=== PATIENT | male | born 1955 | race Caucasian/White ===

== ENCOUNTER 2024-12-04 08:12 | Emergency (ER) | payer MEDICARE, MEDICAID, SELFPAY ==
[2024-12-04 09:09] VITALS: BP 129/83; PULSE 96; RESP 18; TEMP 36.8; O2SAT 96; BMI 22.6
--- NOTE | 2024-12-04 09:18 | PD.EDRME ---
Rapid Medical Screening Exam [facility] Arrival date/time: 12/04/24 08:12 Chief Complaint: General Adult/Misc Complain Vital signs: Vital Signs Temperature 98.2 F 12/04/24 09:09 Pulse Rate 96 12/04/24 09:09 Respiratory Rate 18 12/04/24 09:09 Blood Pressure 129/83 12/04/24 09:09 Pulse Oximetry (%) 96 12/04/24 09:09 Oxygen Delivery Method Room Air 12/04/24 09:09 RME Narrative: 69-year-old patient brought to emergency department by caregiver with complaint of G-tube since yesterday. Patient has been unable to get his medication or feeding since the G-tube was dislodged.
[2024-12-04 13:18] VITALS: BP 141/97; PULSE 102; RESP 18; TEMP 37.1; O2SAT 96
--- NOTE | 2024-12-04 13:35 | PD.EDADULT ---
ED General RME/HPI General Chief complaint: General Adult/Misc Complain Stated complaint: G-TUBE PLUGGED UP X LAST NIGHT Arrival date/time: 12/04/24 08:12 RME / HPI RME / HPI narrative: 69-year-old patient brought to emergency department by caregiver with complaint of G-tube since yesterday. Patient has been unable to get his medication or feeding since the G-tube was dislodged. DR. TILLEY MAIN ED EVALUATION: 69 year old male with past medical history significant for developmental delay, seizure disorder, a history of PEG tube placement for 2 years, colonic adenomatous polyps, BPH, blind, deaf, and bedridden presents to the Emergency Department from [facility] with complaint of G-tube malfunction per human service worker since yesterday. System Integration Engineer states the G-tube does not go in and has not been able to feed the patient or give any medications. System Integration Engineer denies any of the following: nausea, vomiting, diarrhea, or any other symptoms at this time. Related Data Home Medications ?Medication ?Instructions ?Recorded ?Confirmed loratadine 10 mg tablet 10 mg feeding tube QDAY 10/25/22 10/07/24 lorazepam 2 mg tablet 2 mg feeding tube HS 10/25/22 10/07/24 naproxen 500 mg tablet 500 mg feeding tube BID 10/25/22 10/07/24 chlorthalidone 25 mg tablet 25 mg feeding tube QAM 06/16/23 10/07/24 calcium carbonate-vitamin D3 600 1 tab BID 10/07/24 10/07/24 mg calcium-200 unit chewable tablet levetiracetam 500 mg tablet 500 mg BID 10/07/24 10/07/24 melatonin 10 mg tablet 10 mg feeding tube HS 10/07/24 10/07/24 polyethylene glycol 3350 17 17 g feeding tube DAILY 10/07/24 10/07/24 gram/dose oral powder (ClearLax) quetiapine 100 mg tablet 100 mg feeding tube ONCE PM 10/07/24 10/07/24 quetiapine 300 mg tablet 300 mg feeding tube HS 10/07/24 10/07/24 tamsulosin 0.4 mg capsule 0.4 mg QDAY 10/07/24 10/07/24 Previous Rx's ?Medication ?Instructions ?Recorded levofloxacin 750 mg tablet 750 mg PO QDAY #10 tabs 10/08/24 Allergies Allergy/AdvReac Type Severity Reaction Status Date / Time Penicillins Allergy Intermediate Hives Verified 12/04/24 08:13 Review of Systems Review of Systems ROS Unobtainable: unobtainable due to medical condition Past Medical History Past Medical History NEUROLOGIC: Positive Neurological Disorders and Seizures CARDIAC: Negative Cardiac Disorders or Congestive Heart Failure RESPIRATORY: Negative Chronic Obstructive Pulmonary Disease (COPD) or Asthma GASTROINTESTINAL: Positive Gastrointestinal Disorders and Gastroesophageal Reflux Disease; Negative Hepatitis GENITOURINARY: Negative Genitourinary Disorders or Renal Disease MUSCULOSKELETAL: Negative Musculoskeletal Disorders ENT: Positive Blind and Deafness ENDOCRINE: Negative Endocrine Disorders, Diabetes Mellitus Type 1 or Diabetes Mellitus Type 2 HEMATOLOGIC: Negative Blood Disorders or Sickle Cell Disease PSYCHO/SOCIAL: Positive Anxiety OTHER HISTORY: Positive Developmental Delay; Negative Falls, Blood Transfusions, Blood Transfusion Reaction, Anesthesia Reactions, Organ Transplant, Chemotherapy, Radiation Therapy, Hyperbaric Therapy, MRSA, VRSA, Vancomycin-Resistant Enterococci, Human Immunodeficiency Virus (HIV), Measles, Mumps, Rubella ([place] Measles), Pertussis or Clostridium Difficile Surgical History SURGICAL: Negative Organ Transplant Social History SMOKING STATUS: Unknown if ever smoked SECOND HAND EXPOSURE: No SUBSTANCE USE: does not use ALCOHOL: Never ED Exam Narrative Physical exam: GENERAL APPEARANCE: Well hydrated, well nourished, seems in no acute distress. Nonverbal, blind, deaf. VITALS: All vitals were reviewed and the pulse ox is 96% on room air which is normal according to my interpretation. HEENT: Normocephalic, atramatic, EOMI, EACs are patent. There is no bulge or retraction. Throat without erythema or exudate. Moist oromucosa. No jaundice NECK: Supple, no JVD or bruits. CARDIOVASCULAR: Heart regular without S3-S4 or murmur. No rubs or gallops. LUNGS/CHEST: Clear to auscultation bilaterally. No rales, rhonchi, or wheezing. Normal inspection. ABDOMEN: Left upper quadrant GI tube not working noted. Otherwise soft, nontender. No pulsatile masses. No rebound, rigidity, or guarding. No incarcerated hernia. EXTREMITIES: No edema, clubbing, or cyanosis. Intact CSM. Normal inspection and palpation. SKIN: Warm and dry without rashes. Normal inspection. MUSCULOSKELETAL: No gross deformity, NEURO: At baseline. PSYCHIATRIC: At baseline Course Quality Measures none Orders Category Date Time Status Miscellaneous Nursing Order NOW Care 12/04/24 13:42 Active Vital Signs Vital signs: Vital Signs Temperature 98.2 F 12/04/24 09:09 Pulse Rate 96 12/04/24 09:09 Respiratory Rate 18 12/04/24 09:09 Blood Pressure 129/83 12/04/24 09:09 Pulse Oximetry (%) 96 12/04/24 09:09 Oxygen Delivery Method Room Air 12/04/24 09:09 MDM Patient data External records reviewed:: [facility] previous records (Reviewed last admission discharge dated 10/08/24, patient admitted for the following: Community acquired pneumonia of left lower lobe of lung.) Clinical information provided by:: human service worker Social determinants that could affect healthcare access:: none Patient has the following chronic illnesses:: developmental delay, seizure disorder, a history of PEG tube placement for 2 years, colonic adenomatous polyps, BPH, blind, deaf, and bedridden How is presenting disease/condition affected by chronic disease/condition?: exacerbated by Evaluation data The following diagnostics were reviewed and interpreted by me:: other (specify) (none) Lab and/or radiology exams considered but not ordered:: none Interpretation Summary: n/a Medications Medications considered but not ordered:: none Medication administrations:: see above if any Consultations Consultation(s) initiated? (list below): No Diagnosis Differential Diagnosis ED Complaint MDM: G-tube dislodgment. G-tube obstruction. G-tube fracture Most likely diagnosis given after review of the tests above:: G-tube obstruction. Insertion of new G-tube and removal of the old 1 Admission Indicated Admission indicated?: not indicated Explain why admission is indicated or not indicated:: Patient has no emergent abnormalities on his studies and can be managed on an outpatient basis. Admission Request Was there a request for admission?: No Disposition Plan Disposition Plan: Discharge Discharge Attestation Discharge Attestation: The patient and all family members were given an opportunity to ask questions and understood the discharge instructions. Discharge instructions specifically effects, indications for sooner follow up or return to the emergency department, and the expected course of current diagnosis. Patient condition: Stable Medical Decision Making MDM Narrative MDM Narrative: IEstela, am scribing for and in the presence of Dr. Tilley. In the emergency department we were able to locate a brand-new G-tube. The old G-tube was carefully removed after the balloon was deflated. No complication. The brand-new G-tube was inserted by me through the established stoma. It went in easily without any complication. We inflated the balloon with 10 mL of water. We tested the G-tube with auscultation. Stomach air bubble was heard. And we were able to extract some stomach fluid. Therefore the G-tube is in position and is working well. The patient is being discharged to the care provider back to the [facility]. Differential Diagnosis Differential Diagnosis: G-tube dislodgment. G-tube obstruction. G-tube fracture Discharge Plan Plan Patient Disposition: HOME (Self Care) Disposition Comment: Stable for DC home Prescriptions/Referrals Prescriptions/Med Rec: No Action lorazepam 2 mg tablet 2 mg feeding tube HS loratadine 10 mg tablet 10 mg feeding tube QDAY naproxen 500 mg tablet 500 mg feeding tube BID Rx Instructions: with food chlorthalidone 25 mg tablet 25 mg feeding tube QAM tamsulosin 0.4 mg Capsule 0.4 mg QDAY Rx Instructions: via gtube polyethylene glycol 3350 [ClearLax] 17 gram/dose powder 17 g feeding tube DAILY Rx Instructions: with 8 ounces of water or juice calcium carbonate-vitamin D3 600 mg calcium- 200 unit Tablet,Chewable 1 tab BID Rx Instructions: via gtube quetiapine 100 mg tablet 100 mg feeding tube ONCE PM Rx Instructions: in the afternoon levetiracetam 500 mg tablet 500 mg BID Rx Instructions: via gtube quetiapine 300 mg tablet 300 mg feeding tube HS melatonin 10 mg Tablet 10 mg feeding tube HS levofloxacin 750 mg tablet 750 mg PO QDAY Qty: 10 0RF Referrals: Ko Olea MD [Primary Care Provider] - In 1 week Problem List Clinical Impression: Gastrostomy tube obstruction Patient/Caregiver Discharge Instructions Education Materials: ED Feeding Tube Replacement Additional Instructions: Follow-up with his medical doctor as needed. Return emergency department if any problem with the G-tube otherwise Print Language: Citizen Of [place] Stand Alone Forms: Milana Award Info., Patient Portal Info Letter
[2024-12-04 15:36] VITALS: BP 135/60; PULSE 80; RESP 16; TEMP 36.6; O2SAT 95
== END 2024-12-04 15:39 | disposition home or self-care (01) ==
PROVIDERS: Emergency Provider Emergency Medicine; PCP Family Medicine
DX: K94.23 Gastrostomy malfunction (principal); N40.0 Benign prostatic hyperplasia without lower urinary tract symptoms
CPT/HCPCS: 43762; 99283

== ENCOUNTER → 2024-12-23 | Outpatient (CLI) | payer MEDICARE, MEDICAID, SELFPAY ==
--- NOTE | 2024-12-23 16:22 | XR_ITS ---
Examination: AP chest single view Technique one AP upright portable chest single view Exam date and time: December 23, 2024 1644 hrs. Comparison October 07, 2024 Indications: Coughing bronchitis beginning 2 months ago. Findings: Accentuation bronchovascular markings Pneumonia posterior basal segment right lower lobe noted on the lateral view Normal heart size Impression: Mild pneumonia posterior basal segment right lower lobe
== END | disposition home or self-care (01) ==
LOC: CDIM 16:13
PROVIDERS: Referring Provider Family Medicine; Visit Provider Family Medicine
DX: J18.1 Lobar pneumonia, unspecified organism (principal)
CPT/HCPCS: 71046

== ENCOUNTER 2025-01-02 12:24 | Emergency (ER) | payer MEDICARE, MEDICAID, SELFPAY ==
[2025-01-02 12:27] VITALS: BMI 21.8
[2025-01-02 12:39] VITALS: BP 122/62; PULSE 89; RESP 16; TEMP 36.6; O2SAT 95
--- NOTE | 2025-01-02 12:51 | XR_ITS ---
Examination: CT brain head without contrast. 2-D sagittal coronal reconstructions Date and time of exam:January 02, 2025 1340 hrs. Indications: Patient fell today with injury to the head, head pain CTDI: vol (mGy):53.1 DLP: (mGycm):1000 Technique: Multiple CT axial sections of the brain have been obtained, 5 mm slice thickness. Contrast has not been administered. 2-D sagittal, coronal reconstructions have been obtained Low dose protocols were performed. One or more of the following dose reduction techniques were used; automated exposure control, adjustment of the mA and/or KV according to patient size, use of iterative reconstruction technique. Findings: No significant ventricular enlargement. Atrophic optic globes Intra-axial or extra-axial hemorrhage density is not seen. No mass effect or midline shift Basal cisterns are not remarkable. Fourth ventricle is midline. Cranial vault intact. Impression: Negative for acute hemorrhage, mass effect or midline shift
--- NOTE | 2025-01-02 15:00 | PD.EDFALL ---
ED Fall Injury RME/HPI General Chief Complaint: Wound/Laceration Stated Complaint: FALL, LACERATION TO POSTERIOR HEAD Time Seen by Provider: 01/02/25 12:52 Arrival date/time: 01/02/25 12:24 69-year-old male with chronic significant medical problems nonverbal presents with caregiver who witnessed a slip and fall reports that the patient hit the back of his head on a chair reports no loss of consciousness no vomiting Limitations: no limitations Related Data Home Medications ?Medication ?Instructions ?Recorded ?Confirmed loratadine 10 mg tablet 10 mg feeding tube QDAY 10/25/22 10/07/24 lorazepam 2 mg tablet 2 mg feeding tube HS 10/25/22 10/07/24 naproxen 500 mg tablet 500 mg feeding tube BID 10/25/22 10/07/24 chlorthalidone 25 mg tablet 25 mg feeding tube QAM 06/16/23 10/07/24 calcium carbonate-vitamin D3 600 1 tab BID 10/07/24 10/07/24 mg calcium-200 unit chewable tablet levetiracetam 500 mg tablet 500 mg BID 10/07/24 10/07/24 melatonin 10 mg tablet 10 mg feeding tube HS 10/07/24 10/07/24 polyethylene glycol 3350 17 17 g feeding tube DAILY 10/07/24 10/07/24 gram/dose oral powder (ClearLax) quetiapine 100 mg tablet 100 mg feeding tube ONCE PM 10/07/24 10/07/24 quetiapine 300 mg tablet 300 mg feeding tube HS 10/07/24 10/07/24 tamsulosin 0.4 mg capsule 0.4 mg QDAY 10/07/24 10/07/24 Previous Rx's ?Medication ?Instructions ?Recorded levofloxacin 750 mg tablet 750 mg PO QDAY #10 tabs 10/08/24 Allergies Allergy/AdvReac Type Severity Reaction Status Date / Time Penicillins Allergy Intermediate Hives Verified 01/02/25 12:25 Review of Systems Review of Systems Systems Reviewed: All systems reviewed, normal except as documented Constitutional Constitutional: Reports system reviewed and no additional complaints, except as documented, Denies fever(s) and Denies headache(s) Eyes Eyes: Reports system reviewed and no additional complaints, except as documented and Denies blurry vision ENT Ears, Nose, Mouth, and Throat: Reports system reviewed and no additional complaints, except as documented, Denies headache(s), Denies nasal congestion and Denies nasal discharge Cardiovascular Cardiovascular: Reports system reviewed and no additional complaints, except as documented, Denies chest pain and Denies dyspnea Respiratory Respiratory: Reports system reviewed and no additional complaints, except as documented, Denies chest congestion, Denies cough and Denies dyspnea Gastrointestinal Gastrointestinal: Reports system reviewed and no additional complaints, except as documented and Denies abdominal pain Integumentary/Breasts Skin/Breast: Reports system reviewed and no additional complaints, except as documented, Denies rash and Reports wounds (Laceration scalp) Neurologic Neurologic: Reports system reviewed and no additional complaints, except as documented, Reports as per HPI and Denies headache(s) Past Medical History Past Medical History NEUROLOGIC: Positive Neurological Disorders and Seizures CARDIAC: Negative Cardiac Disorders or Congestive Heart Failure RESPIRATORY: Negative Chronic Obstructive Pulmonary Disease (COPD) or Asthma GASTROINTESTINAL: Positive Gastrointestinal Disorders and Gastroesophageal Reflux Disease; Negative Hepatitis GENITOURINARY: Negative Genitourinary Disorders or Renal Disease MUSCULOSKELETAL: Negative Musculoskeletal Disorders ENT: Positive Blind and Deafness ENDOCRINE: Negative Endocrine Disorders, Diabetes Mellitus Type 1 or Diabetes Mellitus Type 2 HEMATOLOGIC: Negative Blood Disorders or Sickle Cell Disease PSYCHO/SOCIAL: Positive Anxiety OTHER HISTORY: Positive Developmental Delay; Negative Falls, Blood Transfusions, Blood Transfusion Reaction, Anesthesia Reactions, Organ Transplant, Chemotherapy, Radiation Therapy, Hyperbaric Therapy, MRSA, VRSA, Vancomycin-Resistant Enterococci, Human Immunodeficiency Virus (HIV), Measles, Mumps, Rubella ([place]ymraes Measles), Pertussis or Clostridium Difficile Surgical History SURGICAL: Negative Organ Transplant Social History SMOKING STATUS: Unknown if ever smoked SECOND HAND EXPOSURE: No SUBSTANCE USE: does not use ED Exam General Limitations: Present no limitations General appearance: Present alert and in no apparent distress Expanded Head Exam Head image:  1. 3 cm laceration Eye Eye exam: Present normal appearance, PERRL and EOMI ENT ENT exam: Present normal exam, normal oropharynx and mucous membranes moist Neck Neck exam: Present normal inspection, full ROM and trachea midline; Absent tenderness Chest Chest inspection: Present normal inspection and symmetric chest wall rise; Absent tenderness Respiratory Respiratory exam: Present normal lung sounds bilaterally; Absent respiratory distress Cardiovascular Cardiovascular exam: Present regular rate, normal rhythm and normal heart sounds Abdominal Exam Abdominal exam: Present soft and normal bowel sounds Extremities Exam Extremities exam: Present normal inspection and full ROM Back Exam Back exam: Present normal inspection and full ROM Neurological Exam Neurological exam: Present alert, oriented X3 and CN II-XII intact Psychiatric Psychiatric exam: Present normal affect and normal mood Skin Skin exam: Present warm, dry and other (Scalp laceration) Course Quality Measures none Orders Category Date Time Status Stapler to Beside ONCE Care 01/02/25 12:51 Completed Wound Care NOW Care 01/02/25 12:[address] head/brain wo con Stat Exams 01/02/25 12:51 Completed Lidocaine 1% 20 ml [Xylocaine 1% 20 ML] Med 01/02/25 12:51 Discontinued 20 ml INFL X1 ONE Tet,Diphth,Pertuss(Acell)-Tdap [Boostrix Vacc] Med 01/02/25 16:25 Discontinued 0.5 ml IMI .ONCE ONE Vital Signs Vital signs: Vital Signs Temperature 97.8 F 01/02/25 12:39 Pulse Rate 89 01/02/25 12:39 Respiratory Rate 16 01/02/25 12:39 Blood Pressure 122/62 01/02/25 12:39 Pulse Oximetry (%) 95 01/02/25 12:39 Oxygen Delivery Method Room Air 01/02/25 12:39 O2 saturation 95% room air within the limits Procedures -ED Laceration Laceration 1: Site: scalp Size (cm): 3 Description: linear Depth: simple, single layer Local Anesthetic: lidocaine 1% Amount of anesthesia used (mL): 0 Pre-repair: irrigated extensively Skin layer closed with: nylon Size (cm): 4-0 Number of sutures: 4 Technique: simple, interrupted Fall MDM Narrative MDM Narrative:: 69-year-old male with chronic significant medical problems nonverbal presents with caregiver who witnessed a slip and fall reports that the patient hit the back of his head on a chair reports no loss of consciousness no vomiting On exam patient is laceration of the back of his head Wound irrigated laceration repaired with 4 sutures applied tetanus updated No active bleeding time of discharge CT scan of the head obtained no acute emergent findings noted Patient discharged home in no distress to follow-up with primary care doctor in the next 24 to 48 hours and for any worsening symptoms to return to the ER immediately Patient data External records reviewed:: [facility] previous records Clinical information provided by:: diving coach Social determinants that could affect healthcare access:: none Patient has the following chronic illnesses:: See history How is presenting disease/condition affected by chronic disease/condition?: exacerbated by Evaluation data The following diagnostics were reviewed and interpreted by me:: radiology exam(s) Lab and/or radiology exams considered but not ordered:: Radiology obtain Interpretation Summary: Reviewed by me Medications / Prescriptions Medications or Prescriptions considered but not ordered:: Given Medication administrations:: Medication Administration History Discontinued Medications Diphtheria/Tetanus/Acell Pertussis (Diphth,Pertuss(Acell),Tet Vac 0.5 Ml Vial) 0.5 ml IMi .ONCE ONE Stop: 01/02/25 16:26 Last Admin: 01/02/25 16:28 Dose: 0.5 ml Documented By: JUAN PABLO Lidocaine HCl (Lidocaine Hcl 1% 20 Ml Vial) 20 ml INFL X1 ONE Stop: 01/02/25 12:52 Last Admin: 01/02/25 16:11 Dose: 20 ml Documented By: JUAN PABLO Given Consultations Consultation(s) initiated? (list below): No Diagnosis Fall Differential Diagnosis: syncope and other (Laceration, abrasion) Most likely diagnosis given after review of the tests above:: Laceration Admission Indicated Admission indicated?: not indicated Admission Request Was there a request for admission?: No Disposition Plan Disposition Plan: Discharge Discharge Attestation Discharge Attestation: The patient and all family members were given an opportunity to ask questions and understood the discharge instructions. Discharge instructions specifically effects, indications for sooner follow up or return to the emergency department, and the expected course of current diagnosis. Patient condition: Stable Discharge Plan Plan Patient Disposition: HOME (Self Care) Disposition Comment: Stable Prescriptions/Referrals Prescriptions/Med Rec: No Action lorazepam 2 mg tablet 2 mg feeding tube HS loratadine 10 mg tablet 10 mg feeding tube QDAY naproxen 500 mg tablet 500 mg feeding tube BID Rx Instructions: with food chlorthalidone 25 mg tablet 25 mg feeding tube QAM tamsulosin 0.4 mg Capsule 0.4 mg QDAY Rx Instructions: via gtube polyethylene glycol 3350 [ClearLax] 17 gram/dose powder 17 g feeding tube DAILY Rx Instructions: with 8 ounces of water or juice calcium carbonate-vitamin D3 600 mg calcium- 200 unit Tablet,Chewable 1 tab BID Rx Instructions: via gtube quetiapine 100 mg tablet 100 mg feeding tube ONCE PM Rx Instructions: in the afternoon levetiracetam 500 mg tablet 500 mg BID Rx Instructions: via gtube quetiapine 300 mg tablet 300 mg feeding tube HS melatonin 10 mg Tablet 10 mg feeding tube HS levofloxacin 750 mg tablet 750 mg PO QDAY Qty: 10 0RF Referrals: No Primary/Family,Physician [Primary Care Provider] - In 1 week Problem List Clinical Impression: Laceration of scalp Patient/Caregiver Discharge Instructions Education Materials: First Aid: Head Injuries Additional Instructions: Please follow up with your primary care doctor in the next 24-48hrs for any worsening symptoms return here immediately Please have suture removed in 10 to 14 days Print Language: [place] Stand Alone Forms: Milana Award Info., Patient Portal Info Letter Vaccines Vaccines Given During Stay: TDaP PA/ROAD MAKER Supervising Physician PA/ROAD MAKER Supervising Physician: Dr Olivier
[2025-01-02] MEDS: LIDOCAINE HCL 1% 20 ML VIAL INFL (16:11)
[2025-01-02] MEDS: DIPHTH,PERTUSS(ACELL),TET VAC 0.5 ML VIAL IMi (16:28)
== END 2025-01-02 16:35 | disposition home or self-care (01) ==
PROVIDERS: Emergency Provider Emergency Medicine
DX: S01.01XA Laceration without foreign body of scalp, initial encounter (principal); W01.0XXA Fall on same level from slipping, tripping and stumbling without subsequent striking against object, initial encounter; Z23 Encounter for immunization
CPT/HCPCS: 12002; 70450; 90471; 90715; 99283; J3490

== ENCOUNTER 2025-02-03 08:30 | Emergency (ER) | payer MEDICARE, MEDICAID, SELFPAY ==
[2025-02-03 09:01] VITALS: BP 128/79; PULSE 94; RESP 15; TEMP 36.4; O2SAT 95
[2025-02-03 09:04] VITALS: BP 128/79; PULSE 91; RESP 18; TEMP 36.7; O2SAT 95; O2SAT 96; BMI 22.4
--- NOTE | 2025-02-03 09:04 | EKG_ITS ---
[facility] Test Date: 2025-02-03 Pat Name: LUCY ELLSWORTH Department: Room: - Gender: Male Field Marketing Lead: : 1955 Requested By: Arian Moy Order Number: [id number] Reading MD: Arian Moy Measurements Intervals [place] Rate: 87 P: 62 [place]: 164 QRS: -48 QRSD: 101 T: 61 QT: 368 QTc: 443 Interpretive Statements SINUS RHYTHM INDETERMINATE AXIS LOW QRS VOLTAGE IN PRECORDIAL LEADS [QRS DEFLECTION < 1.0 mV IN CHEST LEADS] LEFT ANTERIOR FASCICULAR BLOCK [QRS AXIS <= -45, QR IN I, RS IN II] POSSIBLE ANTERIOR MYOCARDIAL INFARCTION , PROBABLY OLD [30 ms Q WAVE IN V3/V4, OR R < 0.2 mV IN V4] Compared to ECG 09/01/2023 09:06:01 Indeterminate axis now present Left anterior fascicular block now present Myocardial infarct finding still present /store/S0/[id number]
--- NOTE | 2025-02-03 09:05 | PD.EDADULT ---
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 Patient is unable provide any history so all the history is communicated by EMS as derived from the nursing facility. No further information can be provided. Related Data Home Medications ?Medication ?Instructions ?Recorded ?Confirmed loratadine 10 mg tablet 10 mg feeding tube QDAY 10/25/22 10/07/24 lorazepam 2 mg tablet 2 mg feeding tube HS 10/25/22 10/07/24 naproxen 500 mg tablet 500 mg feeding tube BID 10/25/22 10/07/24 chlorthalidone 25 mg tablet 25 mg feeding tube QAM 06/16/23 10/07/24 calcium carbonate-vitamin D3 600 1 tab BID 10/07/24 10/07/24 mg calcium-200 unit chewable tablet levetiracetam 500 mg tablet 500 mg BID 10/07/24 10/07/24 melatonin 10 mg tablet 10 mg feeding tube HS 10/07/24 10/07/24 polyethylene glycol 3350 17 17 g feeding tube DAILY 10/07/24 10/07/24 gram/dose oral powder (ClearLax) quetiapine 100 mg tablet 100 mg feeding tube ONCE PM 10/07/24 10/07/24 quetiapine 300 mg tablet 300 mg feeding tube HS 10/07/24 10/07/24 tamsulosin 0.4 mg capsule 0.4 mg QDAY 10/07/24 10/07/24 Previous Rx's ?Medication ?Instructions ?Recorded levofloxacin 750 mg tablet 750 mg PO QDAY #10 tabs 10/08/24 Allergies Allergy/AdvReac Type Severity Reaction Status Date / Time Penicillins Allergy Intermediate Hives Verified 01/02/25 12:25 Review of Systems Review of Systems ROS Unobtainable: unobtainable due to mental status Past Medical History Past Medical History NEUROLOGIC: Positive Neurological Disorders and Seizures GASTROINTESTINAL: Positive Gastrointestinal Disorders and Gastroesophageal Reflux Disease ENT: Positive Blind and Deafness PSYCHO/SOCIAL: Positive Anxiety OTHER HISTORY: Positive Developmental Delay Social History SMOKING STATUS: Never smoker SECOND HAND EXPOSURE: No SUBSTANCE USE: does not use ED Exam Narrative Physical exam: Physical Exam: General: The vital signs were reviewed. Patient has sunken eyes as usual he appears little bit cachectic as usual. O2 sats on room air 97% with a good waveform but the pulse rate is 93. Rectal temp was done since the oral temp was normal and the rectal temperature was also normal. Patient is breathing comfortably appears to be sedate and no obvious pain with examining or palpating his body. Head & Scalp: Besides cachectic and sunken eyes normocephalic, atraumatic. Face: Appears normal and is without lesions, deformity. Ears: Left external pinna appears normal. Right external pinna appears normal. Eyes: The sclera is anicteric. No obvious photophobia. The Left and Right Orbit/Lid/Conjunctiva appears normal without swelling, discoloration or injection. Nose: The nose is without deformity, discharge or tenderness; Throat: Appears dry . The mucous membranes are pink and moist without exudates, redness or mass seen. The tongue appears normal. Neck: The neck is decreased mobility. No adenopathy. Chest: The chest wall is normal in size and symmetry and has no chest wall tenderness or crepitus. The patient displays normal ventilator effort without retractions, accessory muscle use and has adequate air movement bilaterally with no wheezes and no rales. Cardiovascular: Regular rate sinus rhythm of 93 on the monitor. And rhythm; No murmurs, rubs, or gallops; Gastrointestinal: The abdomen appears normal. No obvious hernias or mass. The abdomen is soft and benign, non-distended, with no pain, no guarding and no rebound tenderness. Bowel sounds are present and normal sounding. No CVA tenderness. Genitourinary: Back/Spine: Rolled him he is got a couple small red spots and a little pressure area on his butt but no breakdown. Extremities/Musculoskeletal/lymphatic: The bilateral upper and lower extremities are warm. There are scattered excoriations on the lower extremities. There is no evidence of arterial insufficiency. There is no evidence of venous insufficiency/edema. The patient has atrophy of his extremities and does not follow commands and unable to assess his movement or motor strength. Skin: The skin is warm, dry and intact. No rashes. No petechia. No purpura. No abnormal bruising. The color is appropriate with no cyanosis. Mental status/Psychiatric: Mental status is usual baseline deaf blind nonverbal Neurological: The patient is minimally arousable minimal response to touch this morning. The gait, station and balance are unable to be tested due to his baseline developmental delays. Course Quality Measures none Orders Category Date Time Status Bedside Blood Glucose NOW Care 02/03/25 09:04 Active EKG (ED ONLY) *Do not use* NOW Care 02/03/25 09:[address] head/brain wo con Stat Exams 02/03/25 09:04 Completed EKG (ED Only) Stat Exams 02/03/25 09:04 Draft XR chest 1V portable Stat Exams 02/03/25 09:04 Completed Alcohol, Blood Medical Stat Lab 02/03/25 09:47 Completed Ammonia Stat Lab 02/03/25 09:47 Completed B-Type Natriuretic Peptide Stat Lab 02/03/25 09:47 Completed Blood Culture (Lab) Stat Lab 02/03/25 09:58 Received CBC Stat Lab 02/03/25 09:47 Completed Comprehensive Metabolic Panel Stat Lab 02/03/25 09:47 Completed Drug Screen,Urine Stat Lab 02/03/25 09:09 Completed Lactate (Lactic Acid) Stat Lab 02/03/25 09:47 Completed Procalcitonin Stat Lab 02/03/25 09:47 Completed Prothrombin Time with INR Stat Lab 02/03/25 09:47 Completed Troponin I Stat Lab 02/03/25 09:47 Completed Type and Screen Stat Lab 02/03/25 09:47 Completed Urinalysis Stat Lab 02/03/25 09:09 Completed Urinalysis, C/S if Indicated Stat Lab 02/03/25 09:09 Completed Venous Blood Gas Stat Lab 02/03/25 09:47 Completed Sodium Chloride 0.9% 1000 ml [Ns] 1,000 ml Med 02/03/25 15:14 Discontinued IV 999 mls/hr Sodium Chloride 0.9% 1000 ml [Ns] 2,000 ml Med 02/03/25 09:04 Active IV 150 mls/hr cefTRIAXone [Rocephin] 1,000 mg Med 02/03/25 15:14 Discontinued SODIUM CHLORIDE 0.9% (Popper) [Ns 0.9% (P)] 50 ml IV X1 Vital Signs Vital signs: Vital Signs Temperature 97.6 F 02/03/25 09:01 Pulse Rate 94 02/03/25 09:01 Respiratory Rate 15 02/03/25 09:01 Blood Pressure 128/79 02/03/25 09:01 Pulse Oximetry (%) 95 02/03/25 09:01 Oxygen Delivery Method Room Air 02/03/25 09:01 Pulse ox is 95% on room air which is adequate. [facility] Patient data External records reviewed:: [facility] previous records (I reviewed ED visit on 01/02/2025), EMS form and Long-Term records (I reviewed pmhx and medication list from [facility]) Clinical information provided by:: EMS Social determinants that could affect healthcare access:: housing ([facility] resident) Patient has the following chronic illnesses:: developmental delay, seizure disorder, a history of PEG tube placement for 2 years, colonic adenomatous polyps, BPH, blind, deaf, and bedridden How is presenting disease/condition affected by chronic disease/condition?: exacerbated by Evaluation data The following diagnostics were reviewed and interpreted by me:: lab results, radiology exam(s) and EKG tracing(s) Lab and/or radiology exams considered but not ordered:: none Interpretation Summary: Ordering Physician: Arian Moy MD Date of Service: 02/03/25 Procedure(s): XR chest 1V portable Accession Number(s): [id number] cc: Arian Moy MD; Uvaldo Car MD; Ko Olea MD~ Examination: AP chest single view TECHNIQUE: AP portable semiupright chest single view Exam date and time: February 03, 2025 at 0948 hours INDICATIONS: Onset chest pain today FINDINGS: Mild opacity left base Normal heart size Reduced inspiratory effort IMPRESSION: Mild pneumonia left base Dictated By: Uvaldo Car MD Signed By: <Electronically signed by Uvaldo Car MD in [place]> 02/03/25 1111 Ordering Physician: Arian Moy MD Date of Service: 02/03/25 Procedure(s): CT head/brain wo con Accession Number(s): [id number] cc: Arian Moy MD; Uvaldo Car MD; Ko Olea MD~ Examination: CT brain head without contrast. 2-D sagittal coronal reconstructions Date and time of exam:February 03, 2025 1113 hours INDICATIONS: Loss of consciousness episode today COMPARISON: January 02, 2025 CTDI: vol (mGy):46.2 DLP: (mGycm):989 Technique: Multiple CT axial sections of the brain have been obtained, 5 mm slice thickness. Contrast has not been administered. 2-D sagittal, coronal reconstructions have been obtained Low dose protocols were performed. One or more of the following dose reduction techniques were used; automated exposure control, adjustment of the mA and/or KV according to patient size, use of iterative reconstruction technique. Findings: Images are degraded by patient motion Mild ventricular enlargement No acute hemorrhage or mass effect Atrophic optic globes IMPRESSION: Limited study No gross hemorrhage or mass effect Dictated By: Uvaldo Car MD Signed By: <Electronically signed by Uvaldo Car MD in OV> 02/03/25 1137 Medications Medications considered but not ordered:: none Medication administrations:: Medication Administration History Sodium Chloride (Ns) 2,000 mls @ 150 mls/hr IV .[id number] ONE Stop: 02/03/25 22:23 Last Infusion: 02/03/25 15:30 Dose: 0 mls/hr Documented By: Admin: 02/03/25 09:58 Dose: 150 mls/hr Documented By: ROMEL Discontinued Medications Sodium Chloride (Ns) 1,000 mls @ 999 mls/hr IV .[id number] ONE Stop: 02/03/25 16:14 Last Admin: 02/03/25 15:49 Dose: 999 mls/hr Documented By: TM Ceftriaxone Sodium 1,000 mg/ (Sodium Chloride) 50 mls @ 100 mls/hr IV X1 ONE Stop: 02/03/25 15:43 Last Admin: 02/03/25 15:49 Dose: 100 mls/hr Documented By: TM see above Consultations Consultation(s) initiated? (list below): No Diagnosis Differential Diagnosis ED Complaint MDM: pneumonia, viral illness, dehydration, sepsis Most likely diagnosis given after review of the tests above:: Dehydration may be a left lower lobe pneumonia Admission Indicated Admission indicated?: not indicated Explain why admission is indicated or not indicated:: Patient is not hypoxic he can be hydrated through his G-tube and is BUN/creatinine indices are mildly elevated. custodial doctor through the discharge notes can monitor this and return the patient if getting worse. Admission Request Was there a request for admission?: No Disposition Plan Disposition Plan: Discharge Discharge Attestation Discharge Attestation: The patient and all family members were given an opportunity to ask questions and understood the discharge instructions. Discharge instructions specifically effects, indications for sooner follow up or return to the emergency department, and the expected course of current diagnosis. Patient condition: Stable Medical Decision Making MDM Narrative MDM Narrative: It is literally impossible to tell if he has an acute illness or not but he has a normal O2 sat on arrival he appears to be lethargic and not reacting much so we will do a mental workup for altered mental status. Medical workup reveals a CT of the head with no acute. Chest x-ray reveals a left lower lobe pneumonia. White count is 10.2 hemoglobin is 14.3 platelet count is 1 39,000. pH is 7.39 pCO2 of 60. Sodium is elevated 140 potassium 3.7 chloride 104 CO2 36 BUN is elevated 28 creatinine 1.1 consistent with prerenal azotemia and dehydration glucose 99 Alles mild is elevated at 299 lactic acid is 1.6 transaminases bilirubin within normal limits. Urinalysis came back negative for any infection urine urine drug screen was negative alcohol level was negative Twelve-lead EKG reveals sinus rhythm rate 87. There is a little motion artifact. There is no ST elevation [place] seen. It appears the patient's got some acute dehydration with increased osmolality increased sodium increased BUN/creatinine ratio. The left lower lobe pneumonia. His O2 sat appears good. Both given liter total of fluids given 1 dose of Rocephin here in the ER home on azithromycin and be followed by the [facility] doctor. Caregiver is present and states they can manage these things. Evidently patient has been on antibiotics recently for other things. Patient completed a liter bolus reevaluation of his O2 sat to be 9790%. His vital signs are good he got his gram of Rocephin. In the discharge instructions will and follow-up on his mild dehydration. Differential Diagnosis Differential Diagnosis: pneumonia, viral illness, dehydration, sepsis Lab Data 02/03/25 09:47 02/03/25 09:47 Labs: Lab Results 02/03/25 02/03/25 Range/Units 09:09 09:47 WBC 10.2 (3.8-10.6) Thou/mm3 RBC 4.75 (4.50-5.90) Miln/mm3 Hgb 14.3 (13.5-16.0) g/dL Hct 42.1 (41.0-53.0) % MCV 89 (80-100) fL MCH 30.1 (25.0-35.0) pg MCHC 34.0 (31.0-37.0) g/dl RDW Std Deviation 42.5 (35.1-43.9) fL Plt Count 139 L (140-440) Thou/mm3 Neut % (Auto) 71 (37-80) % Lymph % (Auto) 13 (10-50) % [place] % (Auto) 9 (0-12) % Eos % (Auto) 7 (0-10) % Baso % (Auto) 0 (0-2.5) % Neut # (Auto) 7.3 (1.8-7.7) Thou/mm3 Lymph # (Auto) 1.3 (1.0-4.8) Thou/mm3 [place] # (Auto) 0.9 H (0.0-0.8) Thou/mm3 Eos # (Auto) 0.7 H (0.0-0.5) Thou/mm3 Baso # (Auto) 0.0 (0.0-0.2) Thou/mm3 Immature Gran # (Auto) 0.02 H (0.00-0.00) Thou/mm3 Absolute Nucleated RBC 0.00 (0.00-0.00) Thou/mm3 Immature Gran % 0 (0-0) % Nucleated RBC % 0 (0) /100 WBC PT 11.6 (9.0-12.2) Seconds INR 1.1 (0.9-1.3) VBG pH 7.39 (7.33-7.66) VBG pCO2 60 H (36-56) mmHg VBG pO2 34 (15-58) mmHg VBG O2 Sat (Kassidy) 62 L (96-97) % VBG Base Excess 9 H (-3-3) Sodium 148 H (136-145) mMol/L Potassium 3.7 (3.4-5.1) mMol/L Chloride 104 (98-107) mMol/L Carbon Dioxide 36.0 H (20.0-31.0) mMol/L Anion Gap 8 (7-16) BUN 28 H (9-23) mg/dL Creatinine 1.1 (0.6-1.3) mg/dL Estim Creat Clear Calc 56.5 L (>60) mL/min eGFR > 60 (60 - ) See Note BUN/Creatinine Ratio 25 H (12-20) Ratio Glucose 99 (74-106) mg/dL Calculated Osmolality 299 H (275-295) Lactic Acid 1.6 (0.4-2.0) mMol/L Calcium 10.8 H (8.3-10.6) mg/dL Corrected Calcium 10.8 H (8.5-10.1) mg/dL Total Bilirubin 0.3 (0.3-1.2) mg/dL AST 27 (0-34) U/L ALT 24 (10-49) U/L Alkaline Phosphatase 119 H (46-116) U/L Ammonia < 10 L (11-32) uMol/L Troponin I < 0.020 (0.0-0.045) ng/mL B-Natriuretic Peptide < 20 (0-100) pg/mL Total Protein 7.3 (5.7-8.2) gm/dL Albumin 4.5 (3.4-4.8) gm/dL Globulin 2.8 (2.3-3.5) gm/dL Albumin/Globulin Ratio 1.6 (1.2-2.2) Procalcitonin 0.08 (0.0-0.49) ng/ml Ur Collection Type Clean Catch Urine Color Lt-Yellow (Lt Yel-Yel) Urine Clarity Hazy (Clear/Hazy) Urine pH 7.0 (5.0-7.0) Ur Specific [place] 1.012 (1.001-1.035) Urine Protein Negative (Neg - Trace) Urine Glucose (UA) Negative (Negative) Urine Ketones Negative (Negative) Urine Blood Negative (Negative) Urine Nitrite Negative (Negative) Urine Bilirubin Negative (Negative) Urine Urobilinogen (Auto) Negative (0.0-1.0) mg/dL Ur Leukocyte Esterase Negative (Negative) Urine RBC 6 H (0-3) /hpf Urine WBC 4 (0-5) /hpf Ur Squamous Epith Cells < 1 (0-5) /hpf Ur Transition Epith Cell 3 (0-5) /hpf Amorphous Crystals Present A (Absent) Urine Bacteria None (None) Ur Culture Indicated? Not Indicated Urine Opiates Screen Negative (Negative) Urine Fentanyl Screen Negative (Negative) Ur Barbiturates Screen Negative (Negative) U Amphetamin/Meth Scrn Negative (Negative) U Benzodiazepines Scrn Negative (Negative) U Cocaine Metab Screen Negative (Negative) U Marijuana (THC) Screen Negative (Negative) Ethyl Alcohol < 10.0 (0-10.0) mg/dL Blood Type A Positive Antibody Screen NEGATIVE Blood Bank Wristband ID Yes Discharge Plan Plan Patient Disposition: HOME (Self Care) Prescriptions/Referrals Prescriptions/Med Rec: No Action lorazepam 2 mg tablet 2 mg feeding tube HS loratadine 10 mg tablet 10 mg feeding tube QDAY naproxen 500 mg tablet 500 mg feeding tube BID Rx Instructions: with food chlorthalidone 25 mg tablet 25 mg feeding tube QAM tamsulosin 0.4 mg Capsule 0.4 mg QDAY Rx Instructions: via gtube polyethylene glycol 3350 [ClearLax] 17 gram/dose powder 17 g feeding tube DAILY Rx Instructions: with 8 ounces of water or juice calcium carbonate-vitamin D3 600 mg calcium- 200 unit Tablet,Chewable 1 tab BID Rx Instructions: via gtube quetiapine 100 mg tablet 100 mg feeding tube ONCE PM Rx Instructions: in the afternoon levetiracetam 500 mg tablet 500 mg BID Rx Instructions: via gtube quetiapine 300 mg tablet 300 mg feeding tube HS melatonin 10 mg Tablet 10 mg feeding tube HS levofloxacin 750 mg tablet 750 mg PO QDAY Qty: 10 0RF Referrals: Ko Olea MD [Primary Care Provider] - In 1 week Problem List Clinical Impression: Acute dehydration, Developmental delay, moderate, Pneumonia Patient/Caregiver Discharge Instructions Education Materials: Dehydration Additional Instructions: Today the patient has increased osmolality increased prerenal azotemia probably secondary to dehydration. I would increase her liberalize the water intake through the G-tube. His O2 sats are 97%. The chest x-ray suggest a small infiltrate in the left lower base. He can take antibiotics with the G-tube azithromycin or equivalent. Please recheck his electrolytes in 2 days make sure that BUN/creatinine is improving. Or return if he is getting worse in any way. Print Language: [place] Stand Alone Forms: Milana Award Info., Patient Portal Info Letter
[2025-02-03 09:18] LABS: Collection Type, Urine Clean Catch
[2025-02-03 09:28] LABS: Amorphous Crystals,Urine Present (Absent); Bilirubin,Urine Negative (Negative); Blood,Urine Negative (Negative); Color,Urine Lt-Yellow (Lt Yel-Yel); Culture Indicated,Urine Not Indicated; Glucose, Urine Negative (Negative); Ketones,Urine Negative (Negative); Leukocyte Esterase,Urine Negative (Negative); Nitrite,Urine Negative (Negative); Protein,Urine Negative (Neg - Trace); RBC,Urine 6 /hpf (0-3); Specific Gravity,Urine 1.012 (1.001-1.035); Squamous Epithelial Cell,Urine < 1 /hpf (0-5); Transitional Epi Cells,Urine 3 /hpf (0-5); Urobilinogen,Urine Negative mg/dL (0.0-1.0); WBC,Urine 4 /hpf (0-5)
[2025-02-03 09:32] LABS: Amphetamine/Methamp Scrn,U Negative (Negative); Barbiturate Screen,Urine Negative (Negative); Benzodiazepines Screen,Urine Negative (Negative); Benzoylecgonine Screen, Ur Negative (Negative); Clarity,Urine Hazy (Clear/Hazy); Fentanyl Screen,Urine Negative (Negative); Opiate Screen,Urine Negative (Negative); THC Screen,Urine Negative (Negative)
[2025-02-03] MEDS: SODIUM CHLORIDE 0.9% 1000 ML 2,000 ML 150 ML IV (09:58)
[2025-02-03 10:07] LABS: Lactate (Lactic Acid) 1.6 mMol/L (0.4-2.0)
[2025-02-03 10:08] LABS: Base Excess, Venous 9 (-3-3); O2 Saturation, Venous 62 % (96-97); PCO2, Venous 60 mmHg (36-56); PO2, Venous 34 mmHg (15-58); pH, Venous 7.39 (7.33-7.66)
[2025-02-03 10:09] VITALS: BP 147/93; PULSE 99; RESP 18; TEMP 36.6; O2SAT 96
[2025-02-03 10:14] LABS: Basophils % (Auto) 0 % (0-2.5); Eosinophils # (Auto) 0.7 Thou/mm3 (0.0-0.5); Eosinophils % (Auto) 7 % (0-10); Hematocrit 42.1 % (41.0-53.0); Hemoglobin 14.3 g/dL (13.5-16.0); Immature Granulocytes % (Auto) 0 % (0-0); Immature Granulocytes Auto 0.02 Thou/mm3 (0.00-0.00); Lymphocytes # (Auto) 1.3 Thou/mm3 (1.0-4.8); Lymphocytes % (Auto) 13 % (10-50); Mean Corpuscular Hemoglobin 30.1 pg (25.0-35.0); Mean Corpuscular Volume 89 fL (80-100); Monocytes # (Auto) 0.9 Thou/mm3 (0.0-0.8); Monocytes % (Auto) 9 % (0-12); Neutrophils # (Auto) 7.3 Thou/mm3 (1.8-7.7); Neutrophils % (Auto) 71 % (37-80); Nucleated Red Blood Cell % 0 /100 WBC (0); Platelet Count 139 Thou/mm3 (140-440); RDW Standard Deviation 42.5 fL (35.1-43.9); Red Blood Count 4.75 Miln/mm3 (4.50-5.90); White Blood Count 10.2 Thou/mm3 (3.8-10.6)
[2025-02-03 10:30] LABS: INR 1.1 (0.9-1.3); Prothrombin Time 11.6 Seconds (9.0-12.2)
[2025-02-03 10:33] LABS: Ammonia < 10 uMol/L (11-32)
[2025-02-03 10:35] LABS: Alanine Aminotransferase 24 U/L (10-49); Albumin, Serum 4.5 gm/dL (3.4-4.8); Albumin/Globulin Ratio 1.6 (1.2-2.2); Alcohol, Blood Medical < 10.0 mg/dL (0-10.0); Alkaline Phosphatase 119 U/L (46-116); Anion Gap 8 (7-16); Aspartate Amino Transferase 27 U/L (0-34); BUN/Creatinine Ratio 25 Ratio (12-20); Bilirubin,Total 0.3 mg/dL (0.3-1.2); Blood Urea Nitrogen 28 mg/dL (9-23); Calcium 10.8 mg/dL (8.3-10.6); Calcium (Corrected) 10.8 mg/dL (8.5-10.1); Chloride 104 mMol/L (98-107); Creatinine (Component) 1.1 mg/dL (0.6-1.3); Estimated Creatinine Clearance 56.5 mL/min (>60); Globulin 2.8 gm/dL (2.3-3.5); Glucose 99 mg/dL (74-106); Osmolality,Calculated 299 (275-295); Potassium 3.7 mMol/L (3.4-5.1); Procalcitonin 0.08 ng/ml (0.0-0.49); Sodium 148 mMol/L (136-145); Total Protein 7.3 gm/dL (5.7-8.2); Troponin I < 0.020 ng/mL (0.0-0.045); eGFR > 60 See Note
[2025-02-03 10:49] LABS: B-Type Natriuretic Peptide < 20 pg/mL (0-100)
[2025-02-03 12:02] VITALS: BP 120/72; PULSE 89; RESP 18; TEMP 36.6; O2SAT 96
[2025-02-03 13:37] VITALS: BP 148/84; PULSE 87; RESP 16; TEMP 36.8; O2SAT 97
[2025-02-03] MEDS: cefTRIAXone 1,000 MG in SODIUM CHLORIDE 0.9% (Popper) 50 ML 100 MG IV (15:49)
[2025-02-03] MEDS: SODIUM CHLORIDE 0.9% 1000 ML 1,000 ML 999 ML IV (15:49)
[2025-02-03 16:36] VITALS: TEMP 36.6
--- NOTE | 2025-02-03 17:39 | PC.NURSE ---
Upon discharge caregiver put her facility manager histology on phone, who sates she spoke w/pts provider who refused to write a script for abx, telling her that he is not the one to discover the pna and that the ED provider would need to put in script. ED provider made aware of this, and put in script, this RN prevented a detailed synopsis of pts care while here in the ED for pts provider. Pt assisted to vehicle by residential staff and FI[employer] P[employer]ES SUPERVISOR from ED.
== END 2025-02-03 17:45 | disposition home or self-care (01) ==
PROVIDERS: Emergency Provider Emergency Medicine; PCP Family Medicine
DX: E86.0 Dehydration (principal); J18.9 Pneumonia, unspecified organism; R55 Syncope and collapse; I44.4 Left anterior fascicular block
CPT/HCPCS: 36415; 70450; 71045; 80053; 80307; 80320; 81001; 82140; 82803; 83605; 83880; 84145; 84484; 85025; 85610; 86850; 86900; 86901; 87040; 93005; 96361; 96365; 99284; J0696; J7030; J7050; G0480

== ENCOUNTER → 2025-03-23 | Outpatient (CLI) | payer MEDICARE, MEDICAID, SELFPAY ==
[2025-03-28 07:04] LABS: Levetiracetam (Keppra)* 28.2 mcg/mL (6.0-46.0)
== END | disposition home or self-care (01) ==
LOC: COPL 15:45
PROVIDERS: PCP Family Medicine; Referring Provider Psychiatry & Neurology Neurology; Visit Provider Psychiatry & Neurology Neurology
DX: R56.9 Unspecified convulsions (principal)
CPT/HCPCS: 36415; 80177

== ENCOUNTER → 2025-03-31 | Outpatient (CLI) | payer MEDICARE, MEDICAID, SELFPAY ==
[2025-04-01 11:54] LABS: Cocci Serology, IgM Negative (Negative)
[2025-04-02 14:28] LABS: Cocci Serology, IgG Negative (Negative)
== END | disposition home or self-care (01) ==
LOC: COPL 15:40
PROVIDERS: PCP Family Medicine; Referring Provider Family Medicine; Visit Provider Family Medicine
DX: B38.2 Pulmonary coccidioidomycosis, unspecified (principal)
CPT/HCPCS: 36415; 86331; 86635

== ENCOUNTER 2025-06-11 00:47 | Emergency (ER) | payer MEDICARE, MEDICAID, SELFPAY ==
[2025-06-11 00:49] VITALS: PULSE 80; O2SAT 88; BMI 24.0
--- NOTE | 2025-06-11 00:50 | PD.EDSOB ---
ED SOB =RME/HPI General Chief Complaint: Shortness of Breath/Dyspnea Stated Complaint: SOB Time Seen by Provider: 06/11/25 01:06 Arrival date/time: 06/11/25 00:47 RME / HPI RME / HPI Narrative: Dr. Arellano?s Main ED Evaluation: 69yo male with a history of blindness, deafness, nonverbal BIBA from home presents to the ED for a chief complaint of shortness of breath. Per EMS, patient had [id number] care at home and caregivers noticed the patient appeared to be short of breath, so he was sent over for evaluation. EMS found the patient to be saturating at 88% on room air. Blood sugar en route was 132. Full ROS is unobtainable due to the patient being nonverbal. Related Data Home Medications ?Medication ?Instructions ?Recorded ?Confirmed loratadine 10 mg tablet 10 mg feeding tube QDAY 10/25/22 10/07/24 lorazepam 2 mg tablet 2 mg feeding tube HS 10/25/22 10/07/24 naproxen 500 mg tablet 500 mg feeding tube BID 10/25/22 10/07/24 chlorthalidone 25 mg tablet 25 mg feeding tube QAM 06/16/23 10/07/24 calcium carbonate-vitamin D3 600 1 tab BID 10/07/24 10/07/24 mg calcium-200 unit chewable tablet levetiracetam 500 mg tablet 500 mg BID 10/07/24 10/07/24 melatonin 10 mg tablet 10 mg feeding tube HS 10/07/24 10/07/24 polyethylene glycol 3350 17 17 g feeding tube DAILY 10/07/24 10/07/24 gram/dose oral powder (ClearLax) quetiapine 100 mg tablet 100 mg feeding tube ONCE PM 10/07/24 10/07/24 quetiapine 300 mg tablet 300 mg feeding tube HS 10/07/24 10/07/24 tamsulosin 0.4 mg capsule 0.4 mg QDAY 10/07/24 10/07/24 Previous Rx's ?Medication ?Instructions ?Recorded levofloxacin 750 mg tablet 750 mg PO QDAY #10 tabs 10/08/24 azithromycin 250 mg tablet See Rx Instructions PO .COMPLEX #6 02/03/25 (Zithromax Z-Eric) tabs azithromycin 250 mg tablet 250 mg PO QDAY 4 days #4 tabs 06/11/25 Allergies Allergy/AdvReac Type Severity Reaction Status Date / Time Penicillins Allergy Intermediate Hives Verified 01/02/25 12:25 Review of Systems Review of Systems ROS Unobtainable: other (unobtainable due to the patient being nonverbal, blind, and deaf) Past Medical History Past Medical History NEUROLOGIC: Positive Neurological Disorders and Seizures CARDIAC: Negative Cardiac Disorders or Congestive Heart Failure RESPIRATORY: Negative Chronic Obstructive Pulmonary Disease (COPD) or Asthma GASTROINTESTINAL: Positive Gastrointestinal Disorders and Gastroesophageal Reflux Disease; Negative Hepatitis GENITOURINARY: Negative Genitourinary Disorders or Renal Disease MUSCULOSKELETAL: Negative Musculoskeletal Disorders ENT: Positive Blind and Deafness ENDOCRINE: Negative Endocrine Disorders, Diabetes Mellitus Type 1 or Diabetes Mellitus Type 2 HEMATOLOGIC: Negative Blood Disorders or Sickle Cell Disease PSYCHO/SOCIAL: Positive Anxiety OTHER HISTORY: Positive Developmental Delay; Negative Falls, Blood Transfusions, Blood Transfusion Reaction, Anesthesia Reactions, Organ Transplant, Chemotherapy, Radiation Therapy, Hyperbaric Therapy, MRSA, VRSA, Vancomycin-Resistant Enterococci, Human Immunodeficiency Virus (HIV), Measles, Mumps, Rubella (Iranian Measles), Pertussis or Clostridium Difficile Surgical History SURGICAL: Negative Organ Transplant Social History SMOKING STATUS: Never smoker SECOND HAND EXPOSURE: No SUBSTANCE USE: does not use ED Exam Narrative Physical exam: GENERAL APPEARANCE: awake, nonverbal, no acute distress VITALS: All vitals were reviewed and the pulse ox is % on room air, which is normal according to my interpretation. HEENT: Normocephalic, atraumatic; corneal clouding bilaterally; mucous membranes pink, moist; oropharynx clear NECK: Supple LUNGS: Rales throughout all lung bur[place]; no wheezes, no rhonchi HEART: Regular rate, regular rhythm; normal S1, S2; no murmurs ABDOMEN: non distended; G-tube in place with sanguineous fluid in surrounding; soft, no tenderness, no guarding, no rebound BACK: no CVA tenderness EXTREMITIES: atraumatic; no edema NEUROLOGIC: awake; nonverbal at baseline SKIN: warm, dry, pale; no rashes Course Quality Measures none Orders Category Date Time Status Bedside COVID-19 Antigen Test NOW Care 06/11/25 01:06 Active Bedside Influenza A&B Antigen Test NOW Care 06/11/25 01:06 Completed [employer] NOW Care 06/11/25 01:06 Active EKG (ED ONLY) *Do not use* NOW Care 06/11/25 01:06 Completed EKG (ED Only) Stat Exams 06/11/25 01:06 Ordered XR chest 1V portable Stat Exams 06/11/25 01:06 Taken B-Type Natriuretic Peptide Stat Lab 06/11/25 01:18 Completed Blood Culture (Lab) Stat Lab 06/11/25 01:20 Received CBC Stat Lab 06/11/25 01:18 Completed Comprehensive Metabolic Panel Stat Lab 06/11/25 01:18 Completed Lactate (Lactic Acid) Stat Lab 06/11/25 01:18 Completed Lipase Stat Lab 06/11/25 01:18 Completed Magnesium Stat Lab 06/11/25 01:18 Completed Procalcitonin Stat Lab 06/11/25 01:18 Completed Troponin I Stat Lab 06/11/25 01:18 Completed Urinalysis Stat Lab 06/11/25 01:18 Completed Urine Culture Stat Lab 06/11/25 01:20 Received Albuterol/Ipratr Rt Aruna [Duoneb Rt Aruna] Med 06/11/25 03:10 Discontinued 3 ml INH X1 ONE Azithromycin Po [Zithromax PO] Med 06/11/25 03:57 Once 500 mg PO X1 ONE KCL 10% Liq UDC 15 ML Med 06/11/25 02:43 Discontinued 40 meq GT X1 ONE Vital Signs Vital signs: Vital Signs Temperature 97.5 F 06/11/25 00:57 Pulse Rate 91 06/11/25 00:57 Respiratory Rate 18 06/11/25 00:57 Blood Pressure 132/86 H 06/11/25 00:57 Pulse Oximetry (%) 94 L 06/11/25 00:57 Oxygen Delivery Method Oxy Mask 06/11/25 00:57 Oxygen Flow Rate 9 06/11/25 00:57 Shortness of Breath / Dyspnea MDM Narrative MDM Narrative:: Scribe Attestation: 06/11/25 Eli Sarah am scribing for and in the presence of Dr. Arellano. Patient data External records reviewed:: [facility] previous records (Per chart review, patient was seen here on 02/03/25 for acute dehydration.) and EMS form Clinical information provided by:: EMS Social determinants that could affect healthcare access:: none Patient has the following chronic illnesses:: blindness, deafness How is presenting disease/condition affected by chronic disease/condition?: uneffected by Evaluation data The following diagnostics were reviewed and interpreted by me:: lab results, radiology exam(s) and EKG tracing(s) Lab and/or radiology exams considered but not ordered:: none Interpretation Summary: COVID/Influenza negative, CBC normal, Potassium 3.3, Lactic Acid normal, Magnesium normal, Troponin normal, BNP normal, Procalcitonin normal, UA negative for UTI. CXR shows poor inspiratory effort, right perihilar infiltrate, no cardiomegaly, according to my interpretation. EKG done at 0052, NSR, rate of 85, incomplete RBBB, new from previous EKG done on 02/03/25, no ST-T changes, no STEMI, according to my interpretation. Medications / Prescriptions Medications or Prescriptions considered but not ordered:: none Medication administrations:: Medication Administration History Azithromycin (Azithromycin 250 Mg Tablet) 500 mg PO X1 ONE Stop: 06/11/25 03:58 Discontinued Medications Albuterol/Ipratropium (Albuterol/Ipratropium (Duoneb) Rt Aruna 3 Ml Nebu) 3 ml INH X1 ONE Stop: 06/11/25 03:11 Last Admin: 06/11/25 03:32 Dose: 3 ml Documented By: JOEL Potassium Chloride (Potassium Chloride 10% 20 Meq/15 Ml Udc) 40 meq GT X1 ONE Stop: 06/11/25 02:44 Last Admin: 06/11/25 02:55 Dose: 40 meq Documented By: WO see above Consultations Consultation(s) initiated? (list below): No Diagnosis Shortness of Breath Differential Diagnosis: community acquired pneumonia and other (COVID, Influenza, URI, bronchitis, viral syndrome) Most likely diagnosis given after review of the tests above:: see clinical impression below Admission Indicated Admission indicated?: not indicated Admission Request Was there a request for admission?: No Disposition Plan Disposition Plan: Discharge Discharge Attestation Discharge Attestation: The patient and all family members were given an opportunity to ask questions and understood the discharge instructions. Discharge instructions specifically effects, indications for sooner follow up or return to the emergency department, and the expected course of current diagnosis. Patient condition: Stable Discharge Plan Plan Patient Disposition: HOME (Self Care) Prescriptions/Referrals Prescriptions/Med Rec: New azithromycin 250 mg tablet 250 mg PO QDAY 4 Days Qty: 4 0RF Rx Instructions: start on day 2 of therapy No Action lorazepam 2 mg tablet 2 mg feeding tube HS loratadine 10 mg tablet 10 mg feeding tube QDAY naproxen 500 mg tablet 500 mg feeding tube BID Rx Instructions: with food chlorthalidone 25 mg tablet 25 mg feeding tube QAM tamsulosin 0.4 mg Capsule 0.4 mg QDAY Rx Instructions: via gtube polyethylene glycol 3350 [ClearLax] 17 gram/dose powder 17 g feeding tube DAILY Rx Instructions: with 8 ounces of water or juice calcium carbonate-vitamin D3 600 mg calcium- 200 unit Tablet,Chewable 1 tab BID Rx Instructions: via gtube quetiapine 100 mg tablet 100 mg feeding tube ONCE PM Rx Instructions: in the afternoon levetiracetam 500 mg tablet 500 mg BID Rx Instructions: via gtube quetiapine 300 mg tablet 300 mg feeding tube HS melatonin 10 mg Tablet 10 mg feeding tube HS levofloxacin 750 mg tablet 750 mg PO QDAY Qty: 10 0RF azithromycin [Zithromax Z-Eric] 250 mg tablet See Rx Instructions PO .COMPLEX Qty: 6 0RF Rx Instructions: take 500 mg today (day 1), then 250 mg for 4 days (days 2-5) Referrals: Ko Olea MD [Primary Care Provider] - In 1 week Problem List Clinical Impression: Bronchitis Patient/Caregiver Discharge Instructions Education Materials: ED Upper Resp Infec Abx Tx Print Language: Romanian Stand Alone Forms: [employer] Award Info., Patient Portal Info Letter
[2025-06-11 00:57] VITALS: BP 132/86; PULSE 91; RESP 18; TEMP 36.4; O2SAT 94
--- NOTE | 2025-06-11 01:06 | XR_ITS ---
Examination: AP chest single view Technique one AP portable semiupright chest single view Date and time: June 11, 2025 0143 hours Comparison February 03, 2025 Medications 1 chest pain and shortness of breath today FINDINGS: Pneumonia in the left base retrocardiac obscuring detail hemidiaphragm Right lung clear Reduced inspiratory effort No old appearing or congenital deformity right third rib Minimal prominence left ventricle IMPRESSION: Left base pneumonia
[2025-06-11 01:27] LABS: Collection Type, Urine Clean Catch; Lactate (Lactic Acid) 1.4 mMol/L (0.4-2.0); Squamous Epithelial Cell,Urine 0 /hpf (0-5)
[2025-06-11 01:31] VITALS: PULSE 80
[2025-06-11 01:34] LABS: Basophils # (Auto) 0.0 Thou/mm3 (0.0-0.2); Basophils % (Auto) 1 % (0-2.5); Eosinophils # (Auto) 0.6 Thou/mm3 (0.0-0.5); Eosinophils % (Auto) 8 % (0-10); Hematocrit 36.1 % (41.0-53.0); Hemoglobin 12.7 g/dL (13.5-16.0); Immature Granulocytes Auto 0.02 Thou/mm3 (0.00-0.00); Lymphocytes # (Auto) 1.0 Thou/mm3 (1.0-4.8); Lymphocytes % (Auto) 13 % (10-50); Mean Corpuscular HGB Conc 35.2 g/dl (31.0-37.0); Mean Corpuscular Hemoglobin 30.6 pg (25.0-35.0); Mean Corpuscular Volume 87 fL (80-100); Monocytes # (Auto) 0.8 Thou/mm3 (0.0-0.8); Monocytes % (Auto) 11 % (0-12); Neutrophils # (Auto) 4.8 Thou/mm3 (1.8-7.7); Neutrophils % (Auto) 67 % (37-80); Nucleated Red Blood Cell # 0.00 Thou/mm3 (0.00-0.00); Nucleated Red Blood Cell % 0 /100 WBC (0); Platelet Count 122 Thou/mm3 (140-440); RDW Standard Deviation 41.3 fL (35.1-43.9); Red Blood Count 4.15 Miln/mm3 (4.50-5.90); White Blood Count 7.2 Thou/mm3 (3.8-10.6)
[2025-06-11 01:51] LABS: Amorphous Crystals,Urine Present (Absent); Bilirubin,Urine Negative (Negative); Blood,Urine Negative (Negative); Clarity,Urine Clear (Clear/Hazy); Color,Urine Lt-Yellow (Lt Yel-Yel); Glucose, Urine Negative (Negative); Ketones,Urine Negative (Negative); Leukocyte Esterase,Urine Positive (Negative); Nitrite,Urine Negative (Negative); PH,Urine 7.5 (5.0-7.0); Protein,Urine Negative (Neg - Trace); RBC,Urine 3 /hpf (0-3); Specific Gravity,Urine 1.011 (1.001-1.035); Urobilinogen,Urine Negative mg/dL (0.0-1.0); WBC,Urine 9 /hpf (0-5)
[2025-06-11 02:23] LABS: B-Type Natriuretic Peptide < 20 pg/mL (0-100)
[2025-06-11 02:31] LABS: Alanine Aminotransferase 23 U/L (10-49); Albumin, Serum 3.9 gm/dL (3.4-4.8); Albumin/Globulin Ratio 1.5 (1.2-2.2); Alkaline Phosphatase 104 U/L (46-116); Anion Gap 8 (7-16); Aspartate Amino Transferase 26 U/L (0-34); BUN/Creatinine Ratio 24 Ratio (12-20); Bilirubin,Total 0.2 mg/dL (0.3-1.2); Blood Urea Nitrogen 24 mg/dL (9-23); Calcium 9.6 mg/dL (8.3-10.6); Calcium (Corrected) 9.7 mg/dL (8.5-10.1); Carbon Dioxide 32.0 mMol/L (20.0-31.0); Chloride 101 mMol/L (98-107); Creatinine (Component) 1.0 mg/dL (0.6-1.3); Estimated Creatinine Clearance 61.1 mL/min (>60); Globulin 2.6 gm/dL (2.3-3.5); Glucose 121 mg/dL (74-106); Lipase 29 U/L (12-53); Magnesium 1.9 mg/dL (1.6-2.6); Osmolality,Calculated 286 (275-295); Potassium 3.3 mMol/L (3.4-5.1); Procalcitonin 0.08 ng/ml (0.0-0.49); Sodium 141 mMol/L (136-145); Total Protein 6.5 gm/dL (5.7-8.2); Troponin I < 0.020 ng/mL (0.0-0.045); eGFR > 60 See Note
[2025-06-11 02:49] VITALS: BP 128/75; PULSE 84; RESP 17; TEMP 36.4; O2SAT 93
[2025-06-11] MEDS: POTASSIUM CHLORIDE 10% 20 MEQ/15 ML UDC 40 MEQ GT (02:55)
[2025-06-11] MEDS: ALBUTEROL/IPRATROPIUM (Duoneb) RT SOL 3 ML NEBU INH (03:32)
[2025-06-11 03:33] VITALS: PULSE 75; RESP 20; O2SAT 98
[2025-06-11] MEDS: AZITHROMYCIN 250 MG TABLET 500 MG PO (04:17)
[2025-06-11 04:20] VITALS: BP 138/81; PULSE 82; RESP 16; TEMP 36.4; O2SAT 92
== END 2025-06-11 04:30 | disposition home or self-care (01) ==
PROVIDERS: Emergency Provider Emergency Medicine; PCP Family Medicine
DX: J40 Bronchitis, not specified as acute or chronic (principal); I45.10 Unspecified right bundle-branch block
CPT/HCPCS: 36415; 71045; 80053; 81001; 83605; 83690; 83735; 83880; 84145; 84484; 85025; 87040; 87086; 87400; 87811; 93005; 94640; 99284; A9270

== ENCOUNTER 2025-07-01 15:13 | Emergency (ER) | payer MEDICARE, MEDICAID, SELFPAY ==
[2025-07-01 15:14] VITALS: BMI 23.0
--- NOTE | 2025-07-01 15:33 | PD.EDRME ---
Rapid Medical Screening Exam RME Arrival date/time: 07/01/25 15:13 Here with a family member for clogged G-tube. Chief Complaint: General Adult/Misc Complain Time Seen by Provider: 07/01/25 15:32
[2025-07-01 15:34] VITALS: BP 121/73; PULSE 116; RESP 19; TEMP 36.8; O2SAT 95
--- NOTE | 2025-07-01 15:42 | PD.EDADULT ---
ED General RME/HPI General Chief complaint: General Adult/Misc Complain Stated complaint: SENT BY DR. DOLL G-TUBE NOT WORKING Time Seen by Provider: 07/01/25 15:32 Arrival date/time: 07/01/25 15:13 CC: Clogged G-tube HPI noticed today, but was patent yesterday. Family members bring the patient's from primary residence where he resides patient is afebrile nontoxic-appearing not in any acute distress with stable vital signs. Please note heart rate is mildly elevated. RME / HPI RME / HPI narrative: 07/01/25 15:13 Here with a family member for clogged G-tube. Related Data Home Medications ?Medication ?Instructions ?Recorded ?Confirmed loratadine 10 mg tablet 10 mg feeding tube QDAY 10/25/22 10/07/24 lorazepam 2 mg tablet 2 mg feeding tube HS 10/25/22 10/07/24 naproxen 500 mg tablet 500 mg feeding tube BID 10/25/22 10/07/24 chlorthalidone 25 mg tablet 25 mg feeding tube QAM 06/16/23 10/07/24 calcium carbonate-vitamin D3 600 1 tab BID 10/07/24 10/07/24 mg calcium-200 unit chewable tablet levetiracetam 500 mg tablet 500 mg BID 10/07/24 10/07/24 melatonin 10 mg tablet 10 mg feeding tube HS 10/07/24 10/07/24 polyethylene glycol 3350 17 17 g feeding tube DAILY 10/07/24 10/07/24 gram/dose oral powder (ClearLax) quetiapine 100 mg tablet 100 mg feeding tube ONCE PM 10/07/24 10/07/24 quetiapine 300 mg tablet 300 mg feeding tube HS 10/07/24 10/07/24 tamsulosin 0.4 mg capsule 0.4 mg QDAY 10/07/24 10/07/24 Previous Rx's ?Medication ?Instructions ?Recorded levofloxacin 750 mg tablet 750 mg PO QDAY #10 tabs 10/08/24 azithromycin 250 mg tablet See Rx Instructions PO .COMPLEX #6 02/03/25 (Zithromax Z-Eric) tabs Allergies Allergy/AdvReac Type Severity Reaction Status Date / Time Penicillins Allergy Intermediate Hives Verified 07/01/25 15:14 Review of Systems Review of Systems ROS Unobtainable: unobtainable due to mental status Past Medical History Past Medical History NEUROLOGIC: Positive Neurological Disorders and Seizures CARDIAC: Negative Cardiac Disorders or Congestive Heart Failure RESPIRATORY: Negative Chronic Obstructive Pulmonary Disease (COPD) or Asthma GASTROINTESTINAL: Positive Gastrointestinal Disorders and Gastroesophageal Reflux Disease; Negative Hepatitis GENITOURINARY: Negative Genitourinary Disorders or Renal Disease MUSCULOSKELETAL: Negative Musculoskeletal Disorders ENT: Positive Blind and Deafness ENDOCRINE: Negative Endocrine Disorders, Diabetes Mellitus Type 1 or Diabetes Mellitus Type 2 HEMATOLOGIC: Negative Blood Disorders or Sickle Cell Disease PSYCHO/SOCIAL: Positive Anxiety OTHER HISTORY: Positive Developmental Delay; Negative Falls, Blood Transfusions, Blood Transfusion Reaction, Anesthesia Reactions, Organ Transplant, Chemotherapy, Radiation Therapy, Hyperbaric Therapy, MRSA, VRSA, Vancomycin-Resistant Enterococci, Human Immunodeficiency Virus (HIV), Measles, Mumps, Rubella (Trinidadian Measles), Pertussis or Clostridium Difficile Surgical History SURGICAL: Negative Organ Transplant Social History SMOKING STATUS: Never smoker SECOND HAND EXPOSURE: No SUBSTANCE USE: does not use ED Exam Narrative Physical exam: [General: Appears not in any acute distress Head normocephalic HEENT: Within acceptable limits Neck is supple nontender Chest equal chest rise nontender to palpation Respiratory: Clear to auscultation no wheezes crackles or rubs CV: Rate rhythm is regular no murmurs rubs or clicks Abdomen is soft nontender no masses positive bowel sounds all 4 quadrants. G-tube is in place dressing in place no surrounding erythema or edema G-tube flushes with water without complications. Back: No CVA tenderness no spinous process tenderness from cervical spine thoracic and lumbar spine Skin: Intact no petechiae rash induration ulceration or crepitus Extremities: Moving all extremity against resistance cap refill less than 2 seconds neurosensory intact Neuro: Awake, alert Course Quality Measures none Vital Signs Vital signs: Vital Signs Temperature 98.2 F 07/01/25 15:34 Pulse Rate 116 H 07/01/25 15:34 Respiratory Rate 19 07/01/25 15:34 Blood Pressure 121/73 07/01/25 15:34 Pulse Oximetry (%) 95 07/01/25 15:34 Oxygen Delivery Method Room Air 07/01/25 15:34 Discharge Plan Plan Patient Disposition: HOME (Self Care) Patient condition on transfer: Stable Prescriptions/Referrals Prescriptions/Med Rec: No Action lorazepam 2 mg tablet 2 mg feeding tube HS loratadine 10 mg tablet 10 mg feeding tube QDAY naproxen 500 mg tablet 500 mg feeding tube BID Rx Instructions: with food chlorthalidone 25 mg tablet 25 mg feeding tube QAM tamsulosin 0.4 mg Capsule 0.4 mg QDAY Rx Instructions: via gtube polyethylene glycol 3350 [ClearLax] 17 gram/dose powder 17 g feeding tube DAILY Rx Instructions: with 8 ounces of water or juice calcium carbonate-vitamin D3 600 mg calcium- 200 unit Tablet,Chewable 1 tab BID Rx Instructions: via gtube quetiapine 100 mg tablet 100 mg feeding tube ONCE PM Rx Instructions: in the afternoon levetiracetam 500 mg tablet 500 mg BID Rx Instructions: via gtube quetiapine 300 mg tablet 300 mg feeding tube HS melatonin 10 mg Tablet 10 mg feeding tube HS levofloxacin 750 mg tablet 750 mg PO QDAY Qty: 10 0RF azithromycin [Zithromax Z-Eric] 250 mg tablet See Rx Instructions PO .COMPLEX Qty: 6 0RF Rx Instructions: take 500 mg today (day 1), then 250 mg for 4 days (days 2-5) Problem List Clinical Impression: Complaint associated with gastric tube Patient/Caregiver Discharge Instructions Education Materials: Caring for a Loved One with a ... Print Language: Pashto Stand Alone Forms: [employer] Award Info., Work/School Release, Patient Portal Info Letter PA/WEARING APPAREL SHAKER Supervising Physician REGINALDO/WEARING APPAREL SHAKER Supervising Physician: Sha Almazan ENP MDM Meds/Rx Considered, not Ordered None Labs/Rad/Tests considered, not Ordered None EKG EKG not done Lab Interpretation Labs: none Imaging Imaging interpretation: none Provider imaging interpretation(s): G-tube flushed with water without complication. Diagnosis Differential diagnosis: Clogged G-tube malfunction G-tube G-tube pulled out Dispositon Disposition: Discharge Home
== END 2025-07-01 15:47 | disposition home or self-care (01) ==
LOC: SERX 15:55
PROVIDERS: Emergency Provider Family Medicine; PCP Family Medicine
DX: K94.23 Gastrostomy malfunction (principal)
CPT/HCPCS: 99283

== ENCOUNTER 2025-07-30 06:51 | Emergency (ER) | payer MEDICARE, MEDICAID, SELFPAY ==
[2025-07-30 06:51] VITALS: BMI 20.3
--- NOTE | 2025-07-30 06:59 | PD.EDFALL ---
ED Fall Injury RME/HPI General Chief Complaint: Fall Stated Complaint: FALL Time Seen by Provider: 07/30/25 06:59 Arrival date/time: 07/30/25 06:51 Limitations: no limitations RME / HPI RME / HPI Narrative: 70-year-old male who lives in a residential facility brought in by shore man. Patient is deaf and blind and got up too fast today and tripped and fell. Landing on his knees. Now left knee is bloody and tender. No other body parts were injured during this time. No loss of consciousness. Related Data Home Medications ?Medication ?Instructions ?Recorded ?Confirmed loratadine 10 mg tablet 10 mg feeding tube QDAY 10/25/22 10/07/24 lorazepam 2 mg tablet 2 mg feeding tube HS 10/25/22 10/07/24 naproxen 500 mg tablet 500 mg feeding tube BID 10/25/22 10/07/24 chlorthalidone 25 mg tablet 25 mg feeding tube QAM 06/16/23 10/07/24 calcium carbonate-vitamin D3 600 1 tab BID 10/07/24 10/07/24 mg calcium-200 unit chewable tablet levetiracetam 500 mg tablet 500 mg BID 10/07/24 10/07/24 melatonin 10 mg tablet 10 mg feeding tube HS 10/07/24 10/07/24 polyethylene glycol 3350 17 17 g feeding tube DAILY 10/07/24 10/07/24 gram/dose oral powder (ClearLax) quetiapine 100 mg tablet 100 mg feeding tube ONCE PM 10/07/24 10/07/24 quetiapine 300 mg tablet 300 mg feeding tube HS 10/07/24 10/07/24 tamsulosin 0.4 mg capsule 0.4 mg QDAY 10/07/24 10/07/24 Previous Rx's ?Medication ?Instructions ?Recorded levofloxacin 750 mg tablet 750 mg PO QDAY #10 tabs 10/08/24 azithromycin 250 mg tablet See Rx Instructions PO .COMPLEX #6 02/03/25 (Zithromax Z-Eric) tabs Allergies Allergy/AdvReac Type Severity Reaction Status Date / Time Penicillins Allergy Intermediate Hives Verified 07/01/25 15:14 Review of Systems Review of Systems Systems Reviewed: All systems reviewed, normal except as documented Musculoskeletal Musculoskeletal: Reports as per HPI Integumentary/Breasts Skin/Breast: Reports as per HPI ED Exam General Limitations: Present no limitations General appearance: Present alert and in no apparent distress Head Head exam: Present atraumatic Eye Eye exam: Present other (Does not appear to see bilateral eyes with a white haze) Neck Neck exam: Present normal inspection, full ROM and trachea midline Chest Chest inspection: Present normal inspection and symmetric chest wall rise Respiratory Respiratory exam: Present normal lung sounds bilaterally Cardiovascular Cardiovascular exam: Present regular rate, normal rhythm and normal heart sounds Abdominal Exam Abdominal exam: Present soft and normal bowel sounds Extremities Exam Extremities exam: Present tenderness (1.5cm to left knee, bleeding ) Back Exam Back exam: Present normal inspection and full ROM Psychiatric Psychiatric exam: Present normal affect and normal mood Skin Skin exam: Present warm, dry, intact and normal color Course Quality Measures none Orders Category Date Time Status Set Up Suture Tray STAT Care 07/30/25 07:31 Completed Lidocaine 1% W/Epi 1:100K 20Ml [Xylocaine 1% w/Epi 1: Med 07/30/25 07:31 Discontinued 100K 20 ml] 20 ml INFL X1 ONE Vital Signs Vital signs: Vital Signs Temperature 98.2 F 07/30/25 07:06 Pulse Rate 101 H 07/30/25 07:06 Respiratory Rate 16 07/30/25 07:06 Blood Pressure 126/78 07/30/25 07:06 Pulse Oximetry (%) 97 07/30/25 07:06 Oxygen Delivery Method Room Air 07/30/25 07:06 PROCEDURES: Laceration Laceration 1: Site: lower extremity Side (If applicable): left Size (cm): 1.5 Description: linear Depth: simple, single layer Local Anesthetic: lidocaine 1% and with epi Amount of anesthesia used (mL): 4 Pre-repair: wound explored and irrigated extensively Skin layer closed with: other (ethilon) Suture size (cm): 4-0 Number of sutures: 6 Technique: simple, interrupted Fall Patient data External records reviewed:: [facility] previous records Clinical information provided by:: patient and shore man Social determinants that could affect healthcare access:: housing (residential facility ) Patient has the following chronic illnesses:: blindness and deaf How is presenting disease/condition affected by chronic disease/condition?: exacerbated by Evaluation data The following diagnostics were reviewed and interpreted by me:: other (specify) (none) Lab and/or radiology exams considered but not ordered:: xray of left knee considered however unlikely to change course of treatment today Interpretation Summary: non Medications / Prescriptions Medications or Prescriptions considered but not ordered:: all meds considered were given Medication administrations:: Medication Administration History Discontinued Medications Lidocaine/Epinephrine (Lidocaine 1% W/Epi 1:100k 20 Ml Vial) 20 ml INFL X1 ONE Stop: 07/30/25 07:32 Last Admin: 07/30/25 07:55 Dose: 20 ml Documented By: DB see above Consultations Consultation(s) initiated? (list below): No Diagnosis Fall Differential Diagnosis: fracture of wrist, compression fracture and other (knee fx, knee laceration ) Most likely diagnosis given after review of the tests above:: left knee laceration 1.5 cam Admission Indicated Admission indicated?: not indicated Admission Request Was there a request for admission?: No Disposition Plan Disposition Plan: Discharge Discharge Attestation Discharge Attestation: The patient and all family members were given an opportunity to ask questions and understood the discharge instructions. Discharge instructions specifically effects, indications for sooner follow up or return to the emergency department, and the expected course of current diagnosis. Patient condition: Stable Discharge Plan Plan Patient Disposition: HOME (Self Care) Discharge Disposition comment: f/u with pcp in 2-3days Prescriptions/Referrals Prescriptions/Med Rec: No Action lorazepam 2 mg tablet 2 mg feeding tube HS loratadine 10 mg tablet 10 mg feeding tube QDAY naproxen 500 mg tablet 500 mg feeding tube BID Rx Instructions: with food chlorthalidone 25 mg tablet 25 mg feeding tube QAM tamsulosin 0.4 mg Capsule 0.4 mg QDAY Rx Instructions: via gtube polyethylene glycol 3350 [ClearLax] 17 gram/dose powder 17 g feeding tube DAILY Rx Instructions: with 8 ounces of water or juice calcium carbonate-vitamin D3 600 mg calcium- 200 unit Tablet,Chewable 1 tab BID Rx Instructions: via gtube quetiapine 100 mg tablet 100 mg feeding tube ONCE PM Rx Instructions: in the afternoon levetiracetam 500 mg tablet 500 mg BID Rx Instructions: via gtube quetiapine 300 mg tablet 300 mg feeding tube HS melatonin 10 mg Tablet 10 mg feeding tube HS levofloxacin 750 mg tablet 750 mg PO QDAY Qty: 10 0RF azithromycin [Zithromax Z-Eric] 250 mg tablet See Rx Instructions PO .COMPLEX Qty: 6 0RF Rx Instructions: take 500 mg today (day 1), then 250 mg for 4 days (days 2-5) Problem List Clinical Impression: Laceration, Contusion of knee, left Patient/Caregiver Discharge Instructions Education Materials: ED Contusion, Lower Extremity Print Language: Bolivian Stand Alone Forms: Milana Award Info., Patient Portal Info Letter PA/WHOLESALE ACCOUNT EXECUTIVE Supervising Physician PA/WHOLESALE ACCOUNT EXECUTIVE Supervising Physician: Dr. Stinson
[2025-07-30 07:06] VITALS: BP 126/78; PULSE 101; RESP 16; TEMP 36.8; O2SAT 97
[2025-07-30] MEDS: LIDOCAINE 1% W/EPI 1:100K 20 ML VIAL INFL (07:55)
== END 2025-07-30 08:09 | disposition home or self-care (01) ==
PROVIDERS: Emergency Provider Family Medicine; PCP Family Medicine
DX: S81.012A Laceration without foreign body, left knee, initial encounter (principal); W01.0XXA Fall on same level from slipping, tripping and stumbling without subsequent striking against object, initial encounter
CPT/HCPCS: 12001; 99284; J3490

== ENCOUNTER 2025-08-18 19:27 | Inpatient (IN) | payer MEDICARE, MEDICAID, SELFPAY ==
--- NOTE | 2025-08-18 19:29 | EKG_ITS ---
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: : 1955 Requested By: Fritz Perez Order Number: [id number] Reading MD: Fritz Perez Measurements Intervals [place] Rate: 139 P: NV: QRS: 227 QRSD: 92 T: 72 QT: 330 QTc: 503 Interpretive Statements ATRIAL FLUTTER/TACHYCARDIA WITH RAPID VENTRICULAR RESPONSE INCOMPLETE RIGHT BUNDLE BRANCH BLOCK [90+ ms QRS DURATION, TERMINAL R IN V1/V2, 40+ ms S IN I/aVL/V4/V5/V6] POSSIBLE RIGHT VENTRICULAR HYPERTROPHY [SOME/ALL OF: PROMINENT R IN V1, LATE TRANSITION, RAD, TONYA, SSS] POSSIBLE ANTERIOR MYOCARDIAL INFARCTION , OF INDETERMINATE AGE [30 ms Q WAVE IN V3/V4, OR R < 0.2 mV IN V4] ST ELEVATION, CONSIDER INFERIOR INJURY [MARKED ST ELEVATION W/O NORMALLY INFLECTED T-WAVE IN II/aVF] ACUTE MT Compared to ECG 02/03/2025 09:17:54 Incomplete right bundle-branch block now present ST (T wave) deviation now present Sinus rhythm no longer present Indeterminate axis no longer present Left anterior fascicular block no longer present Myocardial infarct finding still present /store/S0/[id number]/ecg/[id number].pdf
[2025-08-18 19:34] VITALS: BMI 25.0
[2025-08-18 19:42] VITALS: BP 124/94; PULSE 135; RESP 24; TEMP 39.3; O2SAT 96
--- NOTE | 2025-08-18 19:48 | XR_ITS ---
Examination: AP chest single view Technique one AP portable semiupright chest single view Date and time: August 18, 2025, 1952 hrs. Indications: Chest pain shortness of breath today sepsis alert. Findings: Left perihilar left basilar pneumonia. Mild prominence left ventricle Reduced inspiratory effort Impression: Left perihilar left basilar pneumonia
--- NOTE | 2025-08-18 20:07 | PD.EDSOB ---
ED SOB =RME/HPI General Chief Complaint: Shortness of Breath/Dyspnea Stated Complaint: DIFFICULTY BREATHING Source: EMS and other (field naturalist) Arrival date/time: 08/18/25 19:27 Mode of arrival: EMS RME / HPI RME / HPI Narrative: Mr. Poole is a 71-year-old male with past medical history of developmental delay, seizure disorder, history of PEG tube placement, colonic adenomatous polyps and BPH presented to [facility] emergency department from nursing home with a chief complaint of hypoxia. Manager Environmental at bedside assisted in providing history, per her patient was fine until this evening he was being fed via his PEG tube at 6 PM when they suspected that he aspirated, patient has been requiring supplemental oxygen on 6 L during transfer, patient noted to have fever 102.8 in the emergency department and sepsis alert was initiated. Related Data Home Medications ?Medication ?Instructions ?Recorded ?Confirmed loratadine 10 mg tablet 10 mg feeding tube QDAY 10/25/22 10/07/24 lorazepam 2 mg tablet 2 mg feeding tube HS 10/25/22 10/07/24 naproxen 500 mg tablet 500 mg feeding tube BID 10/25/22 10/07/24 chlorthalidone 25 mg tablet 25 mg feeding tube QAM 06/16/23 10/07/24 calcium carbonate-vitamin D3 600 1 tab BID 10/07/24 10/07/24 mg calcium-200 unit chewable tablet levetiracetam 500 mg tablet 500 mg BID 10/07/24 10/07/24 melatonin 10 mg tablet 10 mg feeding tube HS 10/07/24 10/07/24 polyethylene glycol 3350 17 17 g feeding tube DAILY 10/07/24 10/07/24 gram/dose oral powder (ClearLax) quetiapine 100 mg tablet 100 mg feeding tube ONCE PM 10/07/24 10/07/24 quetiapine 300 mg tablet 300 mg feeding tube HS 10/07/24 10/07/24 tamsulosin 0.4 mg capsule 0.4 mg QDAY 10/07/24 10/07/24 Previous Rx's ?Medication ?Instructions ?Recorded levofloxacin 750 mg tablet 750 mg PO QDAY #10 tabs 10/08/24 azithromycin 250 mg tablet See Rx Instructions PO .COMPLEX #6 02/03/25 (Zithromax Z-Eric) tabs Allergies Allergy/AdvReac Type Severity Reaction Status Date / Time Penicillins Allergy Intermediate Hives Verified 07/01/25 15:14 Review of Systems Review of Systems ROS Unobtainable: unobtainable due to mental status Past Medical History Past Medical History NEUROLOGIC: Positive Neurological Disorders and Seizures CARDIAC: Negative Cardiac Disorders or Congestive Heart Failure RESPIRATORY: Negative Chronic Obstructive Pulmonary Disease (COPD) or Asthma GASTROINTESTINAL: Positive Gastrointestinal Disorders and Gastroesophageal Reflux Disease; Negative Hepatitis GENITOURINARY: Negative Genitourinary Disorders or Renal Disease MUSCULOSKELETAL: Negative Musculoskeletal Disorders ENT: Positive Blind and Deafness ENDOCRINE: Negative Endocrine Disorders, Diabetes Mellitus Type 1 or Diabetes Mellitus Type 2 HEMATOLOGIC: Negative Blood Disorders or Sickle Cell Disease PSYCHO/SOCIAL: Positive Anxiety OTHER HISTORY: Positive Developmental Delay; Negative Falls, Blood Transfusions, Blood Transfusion Reaction, Anesthesia Reactions, Organ Transplant, Chemotherapy, Radiation Therapy, Hyperbaric Therapy, MRSA, VRSA, Vancomycin-Resistant Enterococci, Human Immunodeficiency Virus (HIV), Measles, Mumps, Rubella (Citizen [place] Measles), Pertussis or Clostridium Difficile Surgical History SURGICAL: Negative Organ Transplant Social History SMOKING STATUS: Never smoker SECOND HAND EXPOSURE: No SUBSTANCE USE: does not use ED Exam Narrative Physical exam: Physical Exam General: Awake and in no acute distress. Conversational and non-toxic appearing. HEENT: Normocephalic, atraumatic, mucous membranes moist. Heart: Sinus tachycardia, no murmurs. Lungs: Bilateral crackles, no wheezing Abdomen: Soft, nondistended, nontender, positive bowel sounds. ?No guarding or rebound tenderness. PEG tube noted Neurologic: Non verbal, no gross neurological deficit, and patient able to move all 4 extremities. Extremities: No edema. Skin: Various bruises noted bilateral lower extremity healing cut left knee, stage I decubitus ulcer lower back and upper back Course Course Course Narrative: Patient seen at bedside, field naturalist provided history Patient tachycardic, temp 102.8, respiratory rate 24 sepsis alert initiated Workup: Fingerstick blood glucose 158 CBC: WBC 10.8, hemoglobin 14.3, platelet 133, neutrophilia neutrophil count 10,000 Coags: PT 12.2, INR 1.1, APTT 25.6 Chemistry: Sodium 141, potassium 3.5, bicarb 26.7, chloride 101, anion gap 13, BUN 36, creatinine 1.0, GFR greater than 60, glucose 148, lactic acid 3.5, corrected calcium 9.5, total bilirubin 0.3, AST 40, ALT 40, alk phos 110, troponin negative, Pro-Gilberto 0.28 Urine: RBC 3, WBC 2, amorphous crystals present, rare bacteria Urine culture and blood culture sent EKG shows sinus tachycardia rate 139, QTc 503 Patient will be given 2.041 cc bolus fluid per sepsis protocol, cefepime 2 g x 1 and vancomycin x 1. Patient will be given 500 mg of Keppra and IV Tylenol 1 g Chest x-ray shows left perihilar and left basilar pneumonia Case discussed with hospitalist team for admission, patient will be admitted for further workup. Quality Measures Current suspected stage: severe sepsis Possible source: pulmonary and genitourinary Blood cultures ordered: yes Antibiotic ordered: Yes Pertinent labs: 08/18/25 08/18/25 19:50 20:30 Lactic Acid 3.5 H mMol/L (0.4-2.0) Procalcitonin 0.28 ng/ml (0.0-0.49) sepsis Orders Category Date Time Status Admit to Inpatient Status Routine Admission 08/18/25 22:27 Active Patient Condition Routine Admission 08/18/25 22:27 Ordered Bedside Blood Glucose NOW Care 08/18/25 19:48 Active Bedside COVID-19 Antigen Test NOW Care 08/18/25 20:31 Active Bedside Influenza A&B Antigen Test NOW Care 08/18/25 20:31 Completed COVID-19 Screening Questionnaire NOW Care 08/18/25 20:31 Active Skiff Operator Q4H START 00 Care 08/18/25 19:48 Active Continuous Pulse Oximetry NOW Care 08/18/25 19:48 Completed EKG (ED ONLY) *Do not use* NOW Care 08/18/25 19:29 Completed Insert IV NOW Care 08/18/25 19:48 Active Notify provider NEEDED Care 08/18/25 22:27 Active Strict Intake and Output Routine Care 08/18/25 19:48 Ordered EKG (ED Only) Stat Exams 08/18/25 19:29 Draft XR chest 1V SEPSIS PROTOCOL Stat Exams 08/18/25 19:48 Completed Blood Culture (Lab) Stat Lab 08/18/25 19:50 Received CBC AM DRAW Lab 08/19/25 05:00 Ordered CBC AM DRAW Lab 08/20/25 05:00 Ordered CBC AM DRAW Lab 08/21/25 05:00 Ordered CBC Stat Lab 08/18/25 19:50 Completed Comprehensive Metabolic Panel AM DRAW Lab 08/19/25 05:00 Ordered Comprehensive Metabolic Panel AM DRAW Lab 08/20/25 05:00 Ordered Comprehensive Metabolic Panel AM DRAW Lab 08/21/25 05:00 Ordered Comprehensive Metabolic Panel Stat Lab 08/18/25 19:50 Completed Lactate (Lactic Acid) Stat Lab 08/18/25 20:30 Results Magnesium AM DRAW Lab 08/19/25 05:00 Ordered Magnesium AM DRAW Lab 08/20/25 05:00 Ordered Magnesium AM DRAW Lab 08/21/25 05:00 Ordered Partial Thromboplastin Time Stat Lab 08/18/25 19:50 Completed Phosphorous AM DRAW Lab 08/19/25 05:00 Ordered Phosphorous AM DRAW Lab 08/20/25 05:00 Ordered Phosphorous AM DRAW Lab 08/21/25 05:00 Ordered Procalcitonin Stat Lab 08/18/25 19:50 Completed Prothrombin Time with INR Stat Lab 08/18/25 19:50 Completed Troponin I Stat Lab 08/18/25 19:50 Completed Urinalysis Stat Lab 08/18/25 19:50 Completed Urine Culture Stat Lab 08/18/25 19:50 Received Acetaminophen Ivpb [Ofirmev Inj] Med 08/18/25 20:07 Discontinued 1,000 mg in 100 ml IV X1 Cefepime Inj [Maxipime Inj] 2 gm Med 08/18/25 19:50 Discontinued SODIUM CHLORIDE 0.9% (Popper) [Ns 0.9% (P)] 50 ml IV X1 Doxycycline Inj [Vibramycin Inj] 100 mg Med 08/18/25 19:50 Discontinued Sodium Chloride 0.9% (Pop) [NS 0.9% mini bag] 100 ml IV X1 Sodium Chloride 0.9% 1000 ml [Ns] 2,041 ml Med 08/18/25 19:49 Discontinued IV 2,041 mls/hr Vancomycin/Ns 500 mg Ivpb 100 ml Med 08/18/25 20:09 Discontinued IV X1 levETIRAcetam INJ [Keppra Inj] Med 08/18/25 20:10 Discontinued 500 mg IVP X1 ONE Code Status Routine Oth 08/18/25 22:27 Ordered EKG (RT) Stat RT 08/18/25 19:48 Ordered Oxygen Delivery NOW RT 08/18/25 19:48 Active Vital Signs Vital signs: Vital Signs Temperature 102.8 F H 08/18/25 19:42 Pulse Rate 135 H 08/18/25 19:42 Respiratory Rate 24 H 08/18/25 19:42 Blood Pressure 124/94 H 08/18/25 19:42 Pulse Oximetry (%) 96 08/18/25 19:42 Oxygen Delivery Method Nasal Cannula 08/18/25 19:42 Oxygen Flow Rate 6 08/18/25 19:42 Shortness of Breath / Dyspnea MDM Narrative MDM Narrative:: #Acute Hypoxic Respiratory Failure #Aspiration PNA #Suspicion of Sepsis #UTI Patient seen at bedside, field naturalist provided history Patient tachycardic, temp 102.8, respiratory rate 24 sepsis alert initiated CBC: WBC 10.8, hemoglobin 14.3, platelet 133, neutrophilia neutrophil count 10,000 Chemistry: Sodium 141, potassium 3.5, bicarb 26.7, chloride 101, anion gap 13, BUN 36, creatinine 1.0, GFR greater than 60, glucose 148, lactic acid 3.5, corrected calcium 9.5 Pro-Gilberto 0.28 Urine: RBC 3, WBC 2, amorphous crystals present, rare bacteria Urine culture and blood culture sent EKG shows sinus tachycardia rate 139, QTc 503 Patient will be given 2.041 cc bolus fluid per sepsis protocol, cefepime 2 g x 1 and vancomycin x 1. Patient will be given 500 mg of Keppra and IV Tylenol 1 g Chest x-ray shows left perihilar and left basilar pneumonia Case discussed with hospitalist team for admission, patient will be admitted for further workup. Case discussed with Attending Physician Dr. Kain Awad MD Internal Medicine PGY-2 Disclaimer: This note was dictated by speech recognition. Minor errors in plant chief may be present due to voice recognition software. Patient data External records reviewed:: [facility] previous records and Skilled Nursing records Clinical information provided by:: field naturalist Social determinants that could affect healthcare access:: mental health Patient has the following chronic illnesses:: As Above How is presenting disease/condition affected by chronic disease/condition?: exacerbated by Evaluation data The following diagnostics were reviewed and interpreted by me:: lab results, radiology exam(s) and EKG tracing(s) Lab and/or radiology exams considered but not ordered:: None Interpretation Summary: CBC: WBC 10.8, hemoglobin 14.3, platelet 133, neutrophilia neutrophil count 10,000 Chemistry: Sodium 141, potassium 3.5, bicarb 26.7, chloride 101, anion gap 13, BUN 36, creatinine 1.0, GFR greater than 60, glucose 148, lactic acid 3.5, corrected calcium 9.5 Pro-Gilberto 0.28 Urine: RBC 3, WBC 2, amorphous crystals present, rare bacteria Urine culture and blood culture sent EKG shows sinus tachycardia rate 139, QTc 503 Patient will be given 2.041 cc bolus fluid per sepsis protocol, cefepime 2 g x 1 and vancomycin x 1. Patient will be given 500 mg of Keppra and IV Tylenol 1 g Chest x-ray shows left perihilar and left basilar pneumonia Medications / Prescriptions Medications or Prescriptions considered but not ordered:: None Medication administrations:: Medication Administration History Discontinued Medications Sodium Chloride (Ns) 2,041 mls @ 2,041 mls/hr 30 ml/kg infuse over 60 min (2041 ml) IV .Q1H ONE; Protocol Stop: 08/18/25 20:48 Last Infusion: 08/18/25 21:36 Dose: Infused Documented By: Admin: 08/18/25 20:08 Dose: 2,041 mls/hr Documented By: STEPHANIE Comments: Cefepime HCl 2 gm/ Sodium (Chloride) 50 mls @ 100 mls/hr IV X1 ONE Stop: 08/18/25 20:19 Last Infusion: 08/18/25 20:35 Dose: Infused Documented By: Admin: 08/18/25 20:09 Dose: 100 mls/hr Documented By: STEPHANIE Doxycycline Hyclate 100 mg/ (Sodium Chloride) 100 mls @ 100 mls/hr IV X1 ONE Stop: 08/18/25 20:49 Last Admin: 08/18/25 20:12 Dose: Not Given Documented By: STEPHANIE Non-Admin Reason: Cancelled by Provider Acetaminophen (Ofirmev Inj) 1,000 mg in 100 mls @ 250 mls/hr IV X1 ONE Stop: 08/18/25 20:30 Last Infusion: 08/18/25 20:59 Dose: Infused Documented By: Admin: 08/18/25 20:28 Dose: 250 mls/hr Documented By: STEPHANIE Vancomycin/Sodium Chloride (Vancomycin/Ns 500 Mg Ivpb) 100 mls @ 120 mls/hr IV X1 ONE Stop: 08/18/25 20:58 Last Infusion: 08/18/25 21:57 Dose: Infused Documented By: Admin: 08/18/25 21:08 Dose: 120 mls/hr Documented By: STEPHANIE Levetiracetam (Levetiracetam Inj 100 Mg/Ml Vial 5ml) 500 mg IVP X1 ONE Stop: 08/18/25 20:11 Last Admin: 08/18/25 20:27 Dose: 500 mg Documented By: STEPHANIE As Above Consultations Consultation(s) initiated? (list below): No Diagnosis Shortness of Breath Differential Diagnosis: community acquired pneumonia Most likely diagnosis given after review of the tests above:: Pneumonia Admission Indicated Admission indicated?: indicated Admission Request Was there a request for admission?: Yes Admission Attestation Admission request attestation: Discussed case with [] from Hospitalist service regarding admission. Discussed patients ED course, exam findings, labs, and radiology results. The Hospitalist [agrees,declines] to accept the patient for admission. Disposition Plan Disposition Plan: Admit Discharge Plan Plan Patient Disposition: Admit Acute Care w/in Hospital Prescriptions/Referrals Prescriptions/Med Rec: No Action lorazepam 2 mg tablet 2 mg feeding tube HS loratadine 10 mg tablet 10 mg feeding tube QDAY naproxen 500 mg tablet 500 mg feeding tube BID Rx Instructions: with food chlorthalidone 25 mg tablet 25 mg feeding tube QAM tamsulosin 0.4 mg Capsule 0.4 mg QDAY Rx Instructions: via gtube polyethylene glycol 3350 [ClearLax] 17 gram/dose powder 17 g feeding tube DAILY Rx Instructions: with 8 ounces of water or juice calcium carbonate-vitamin D3 600 mg calcium- 200 unit Tablet,Chewable 1 tab BID Rx Instructions: via gtube quetiapine 100 mg tablet 100 mg feeding tube ONCE PM Rx Instructions: in the afternoon levetiracetam 500 mg tablet 500 mg BID Rx Instructions: via gtube quetiapine 300 mg tablet 300 mg feeding tube HS melatonin 10 mg Tablet 10 mg feeding tube HS levofloxacin 750 mg tablet 750 mg PO QDAY Qty: 10 0RF azithromycin [Zithromax Z-Eric] 250 mg tablet See Rx Instructions PO .COMPLEX Qty: 6 0RF Rx Instructions: take 500 mg today (day 1), then 250 mg for 4 days (days 2-5) Referrals: Ko Olea MD [Primary Care Provider, Family Practice] - In 1 week Problem List Clinical Impression: Sepsis, Pneumonia Patient/Caregiver Discharge Instructions Print Language: Samoan Stand Alone Forms: Milana Award Info., Patient Portal Info Letter
[2025-08-18] MEDS: SODIUM CHLORIDE 0.9% 2041 ML IV (20:08)
[2025-08-18] MEDS: CEFEPIME INJ 2 GM in SODIUM CHLORIDE 0.9% (Popper) 50 ML IV (20:09)
[2025-08-18 20:11] LABS: Collection Type, Urine Clean Catch
[2025-08-18 20:19] LABS: Basophils # (Auto) 0.0 Thou/mm3 (0.0-0.2); Basophils % (Auto) 0 % (0-2.5); Eosinophils # (Auto) 0.1 Thou/mm3 (0.0-0.5); Eosinophils % (Auto) 1 % (0-10); Hematocrit 42.5 % (41.0-53.0); Hemoglobin 14.3 g/dL (13.5-16.0); Immature Granulocytes Auto 0.03 Thou/mm3 (0.00-0.00); Lymphocytes # (Auto) 0.1 Thou/mm3 (1.0-4.8); Lymphocytes % (Auto) 1 % (10-50); Mean Corpuscular HGB Conc 33.6 g/dl (31.0-37.0); Mean Corpuscular Hemoglobin 30.0 pg (25.0-35.0); Mean Corpuscular Volume 89 fL (80-100); Monocytes # (Auto) 0.6 Thou/mm3 (0.0-0.8); Monocytes % (Auto) 6 % (0-12); Neutrophils # (Auto) 10.0 Thou/mm3 (1.8-7.7); Neutrophils % (Auto) 92 % (37-80); Nucleated Red Blood Cell # 0.00 Thou/mm3 (0.00-0.00); Nucleated Red Blood Cell % 0 /100 WBC (0); Platelet Count 133 Thou/mm3 (140-440); RDW Standard Deviation 42.4 fL (35.1-43.9); Red Blood Count 4.77 Miln/mm3 (4.50-5.90); White Blood Count 10.8 Thou/mm3 (3.8-10.6)
[2025-08-18 20:24] LABS: Amorphous Crystals,Urine Present (Absent); Bacteria,Urine Rare; Bilirubin,Urine Negative (Negative); Blood,Urine Negative (Negative); Clarity,Urine Clear (Clear/Hazy); Color,Urine Lt-Yellow (Lt Yel-Yel); Glucose, Urine Negative (Negative); Ketones,Urine Negative (Negative); Leukocyte Esterase,Urine Negative (Negative); Nitrite,Urine Negative (Negative); PH,Urine 7.0 (5.0-7.0); Protein,Urine Negative (Neg - Trace); RBC,Urine 3 /hpf (0-3); Specific Gravity,Urine 1.012 (1.001-1.035); Squamous Epithelial Cell,Urine 1 /hpf (0-5); Urobilinogen,Urine Negative mg/dL (0.0-1.0); WBC,Urine 2 /hpf (0-5)
[2025-08-18] MEDS: levETIRAcetam INJ 100 MG/ML VIAL 5ML 500 MG IVP (20:27)
[2025-08-18] MEDS: ACETAMINOPHEN IVPB 1,000 MG/100 ML VIAL 250 MG IV (20:28)
[2025-08-18 20:35] LABS: Lactate (Lactic Acid) 3.5 mMol/L (0.4-2.0)
[2025-08-18 20:37] VITALS: PULSE 124; PULSE 125; RESP 23; O2SAT 98
[2025-08-18 20:40] LABS: INR 1.1 (0.9-1.3); Partial Thromboplastin Time 25.6 Seconds (22.0-36.0); Prothrombin Time 12.2 Seconds (9.0-12.2)
[2025-08-18 20:41] LABS: Alanine Aminotransferase 40 U/L (10-49); Albumin, Serum 4.0 gm/dL (3.4-4.8); Albumin/Globulin Ratio 1.5 (1.2-2.2); Alkaline Phosphatase 110 U/L (46-116); Anion Gap 13 (7-16); Aspartate Amino Transferase 40 U/L (0-34); BUN/Creatinine Ratio 36 Ratio (12-20); Bilirubin,Total 0.3 mg/dL (0.3-1.2); Blood Urea Nitrogen 36 mg/dL (9-23); Calcium 9.5 mg/dL (8.3-10.6); Calcium (Corrected) 9.5 mg/dL (8.5-10.1); Carbon Dioxide 26.7 mMol/L (20.0-31.0); Chloride 101 mMol/L (98-107); Creatinine (Component) 1.0 mg/dL (0.6-1.3); Estimated Creatinine Clearance 58.1 mL/min (>60); Globulin 2.6 gm/dL (2.3-3.5); Glucose 148 mg/dL (74-106); Osmolality,Calculated 292 (275-295); Potassium 3.5 mMol/L (3.4-5.1); Procalcitonin 0.28 ng/ml (0.0-0.49); Sodium 141 mMol/L (136-145); Total Protein 6.6 gm/dL (5.7-8.2); Troponin I < 0.020 ng/mL (0.0-0.045); eGFR > 60 See Note
[2025-08-18 21:06] VITALS: PULSE 116; RESP 22; O2SAT 97
[2025-08-18] MEDS: VANCOMYCIN/NS 500 MG IVPB 100 ML 120 MG IV (21:08)
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
[2025-08-18 23:36] LABS: Reflex Lactate? Y
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
[2025-08-18 23:38] VITALS: BP 119/76; PULSE 114; RESP 17; TEMP 38.1; O2SAT 97
[2025-08-18 23:52] LABS: Lactic Acid, 3 HR 1.9 mMol/L (0.4-2.0)
[2025-08-18 23:59] VITALS: PULSE 117; RESP 26; O2SAT 97
[2025-08-18] MEDS: SODIUM CHLORIDE RT 10% 15 ML NEBU 5 ML INH (23:59)
[2025-08-19] VITALS (14 sets, daily range): BP systolic 112–134; BP diastolic 65–83; PULSE 99–116; RESP 14–25; TEMP 36.4–37.1; O2SAT 93–100; BMI 25.5
--- NOTE | 2025-08-19 00:18 | PC.RT ---
Unable to obtain sputum with sputum induction. Patient has a dry cough. aware. Asha CHAKRABORTY-CONTENT PUBLISHER
--- NOTE | 2025-08-19 00:25 | EKG_ITS ---
[facility] Test Date: 2025-08-19 Pat Name: LUCY ELLSWORTH Department: Room: [facility] Gender: Male Lens Inserter: : 1955 Requested By: Indio Bahena Order Number: [id number] Reading MD: Indio Bahena Measurements Intervals [place] Rate: 113 P: 40 MO: 136 QRS: 244 QRSD: 99 T: 64 QT: 327 QTc: 450 Interpretive Statements SINUS TACHYCARDIA INCOMPLETE RIGHT BUNDLE BRANCH BLOCK [90+ ms QRS DURATION, TERMINAL R IN V1/V2, 40+ ms S IN I/aVL/V4/V5/V6] POSSIBLE RIGHT VENTRICULAR HYPERTROPHY [SOME/ALL OF: PROMINENT R IN V1, LATE TRANSITION, RAD, TONYA, SSS] POSSIBLE ANTERIOR MYOCARDIAL INFARCTION , OF INDETERMINATE AGE [30 ms Q WAVE IN V3/V4, OR R < 0.2 mV IN V4] Compared to ECG 08/18/2025 19:29:55 Atrial flutter no longer present ST (T wave) deviation no longer present Myocardial infarct finding still present /store/S0/[id number]/ecg/[id number].pdf
[2025-08-19] MEDS: cefTRIAXone/D5w 1gm IV premix 1 GM/50 ML BAG IV ×3 (00:29→20:09)
--- NOTE | 2025-08-19 00:45 | PC.NURSE ---
Report received, pt arrived to room 378 via gurney with Jay finishing up, ED RN disconnected-complete. Pt has care provider at bedside, oriented to room. Call light within reach alarm activated.
[2025-08-19 00:57] LABS: Magnesium 1.6 mg/dL (1.6-2.6); Troponin I 0.027 ng/mL (0.0-0.045)
--- NOTE | 2025-08-19 01:15 | PC.NURSE ---
Swallow screen not completed, listed as fail pt does not take PO, has PEG tube.
--- NOTE | 2025-08-19 01:17 | PC.NURSE ---
Pt does not take by mouth has feeding tube.
[2025-08-19] MEDS: LEVALBUTEROL RT 0.63 MG/3 ML NEBU INH ×6 (02:41→22:13)
--- NOTE | 2025-08-19 02:51 | PC.RT ---
SPUTUM CAN NOT BE [id number]. PT IS DEV DELAYED, NON-VERBAL AND DOES NOT FOLLOW COMMANDS.
[2025-08-19] MEDS: POTASSIUM CHLORIDE 10% 20 MEQ/15 ML UDC 60 MEQ GT (02:52)
[2025-08-19] MEDS: Magnesium Sulfate 2 GM Ivpb 2 GM/50 ML BAG IV (02:52)
[2025-08-19] MEDS: ATORVASTATIN CALCIUM 20 MG TABLET 80 MG GT (02:54)
--- NOTE | 2025-08-19 03:18 | PC.NURSE ---
Per care provider at bedside, pt tube feed only with Fibersource HN 6 cans a day followed by 140ml water flush at schedule 0600-1 1/2 cans, 1000-1 can, 1400-1 1/2 cans, 1800-1 can and 2200-1 can.
[2025-08-19 06:10] LABS: Basophils # (Auto) 0.0 Thou/mm3 (0.0-0.2); Basophils % (Auto) 0 % (0-2.5); Eosinophils # (Auto) 0.0 Thou/mm3 (0.0-0.5); Eosinophils % (Auto) 0 % (0-10); Hematocrit 40.0 % (41.0-53.0); Hemoglobin 13.2 g/dL (13.5-16.0); Immature Granulocytes Auto 0.03 Thou/mm3 (0.00-0.00); Lymphocytes # (Auto) 0.3 Thou/mm3 (1.0-4.8); Lymphocytes % (Auto) 3 % (10-50); Mean Corpuscular HGB Conc 33.0 g/dl (31.0-37.0); Mean Corpuscular Hemoglobin 29.7 pg (25.0-35.0); Mean Corpuscular Volume 90 fL (80-100); Monocytes # (Auto) 0.2 Thou/mm3 (0.0-0.8); Monocytes % (Auto) 2 % (0-12); Neutrophils # (Auto) 11.1 Thou/mm3 (1.8-7.7); Neutrophils % (Auto) 95 % (37-80); Nucleated Red Blood Cell # 0.00 Thou/mm3 (0.00-0.00); Nucleated Red Blood Cell % 0 /100 WBC (0); Platelet Count 123 Thou/mm3 (140-440); RDW Standard Deviation 42.8 fL (35.1-43.9); Red Blood Count 4.45 Miln/mm3 (4.50-5.90); White Blood Count 11.6 Thou/mm3 (3.8-10.6)
[2025-08-19 06:25] LABS: Alanine Aminotransferase 39 U/L (10-49); Albumin, Serum 3.8 gm/dL (3.4-4.8); Albumin/Globulin Ratio 1.7 (1.2-2.2); Alkaline Phosphatase 95 U/L (46-116); Anion Gap 10 (7-16); Aspartate Amino Transferase 42 U/L (0-34); BUN/Creatinine Ratio 24 Ratio (12-20); Bilirubin,Total 0.4 mg/dL (0.3-1.2); Blood Urea Nitrogen 22 mg/dL (9-23); Calcium 9.1 mg/dL (8.3-10.6); Calcium (Corrected) 9.3 mg/dL (8.5-10.1); Carbon Dioxide 27.1 mMol/L (20.0-31.0); Chloride 106 mMol/L (98-107); Creatinine (Component) 0.9 mg/dL (0.6-1.3); Estimated Creatinine Clearance 64.5 mL/min (>60); Globulin 2.3 gm/dL (2.3-3.5); Glucose 145 mg/dL (74-106); Magnesium 2.1 mg/dL (1.6-2.6); Osmolality,Calculated 291 (275-295); Phosphorous 1.4 mg/dL (2.4-5.1); Potassium 3.5 mMol/L (3.4-5.1); Sodium 143 mMol/L (136-145); Total Protein 6.1 gm/dL (5.7-8.2); eGFR > 60 See Note
[2025-08-19] MEDS: MULTIVITAMINS TABLET 1 TAB GT (08:37)
[2025-08-19] MEDS: POLYETHYLENE GLYCOL 17 GM PACKET GT (08:37)
[2025-08-19] MEDS: HEPARIN SOD INJ 5000 UNIT/ML VIAL SC ×2 (08:37→20:17)
[2025-08-19] MEDS: TAMSULOSIN HCL 0.4 MG CAPSULE PO (08:38)
--- NOTE | 2025-08-19 09:30 | PC.SS ---
Tulio Poole a 70 year old male admitted for Acute hypoxic resp. failure. This grad intern made contact with responsible republican/emergency contact via telephone 08/19 @[id number] spoke with Macario De León at [facility] and completed initial assessment. Macario hinojosa patient is conserved by [facility] ([facility]). Macariodarling hinojosa plan is for patient to return home, he will be transported back home by care staff at [facility]. Macario hinojosa patient has w/chair at home and does not require further medical equipment as needs are provided at home. Patient will continue to use [facility] in [place] for all medications, he will continue to be seen by Dr. Ko Olea. Patient attends day program at [facility] [employer] [facility] ([facility]) and does not have an advanced directive in place. No questions or concerns at this time. PCP: Dr. Lefty RONDON Plan: Home @ [facility] Next of Kin: [facility], Macario De León
[2025-08-19] MEDS: NAPH,KPH MBDB 1 PACKET (1.5 GM) GT (12:08)
[2025-08-19] MEDS: CHLORTHALIDONE 25 MG TABLET (NON-FORMULARY) GT (12:08)
[2025-08-19] MEDS: metroNIDAZOLE/NS 500 MG IVPB 500 MG/100 ML BAG 200 MG IV ×2 (12:09→21:04)
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
--- NOTE | 2025-08-19 13:19 | ESPR_ITS ---
<Statement entered by Keo Benjamin MD - 08/19/25 18:31> Patient examined and case discussed with the team including attending physician. Note reviewed, I agree with the care plan as documented. Please refer to the note below for further details. - Keo Benjamin MD, PGY 3 Disclaimer: The document may contain phonetic/typographic errors due to voice recognition software. These errors are purely due to imperfections in the software program. Documentation for date of: 08/19/25 Subjective Subjective Interval history: No significant overnight events. Started tube feeds today and patient tolerated well. Labs significant for a white count of 11.6 up from 10.8, hemoglobin 13.2, blood chemistry within normal limits, phosphorus 1.4, ordered phosphorus packet. Lactic acid was 3.5 and downtrended to 1.9. Exam Vital Signs Temp Pulse Resp BP Pulse Ox O2 Del Method O2 Flow Rate 97.8 F 101 H 14 134/82 H 98 Nasal Cannula 2 08/19/25 07:30 08/19/25 12:08 08/19/25 11:19 08/19/25 12:08 08/19/25 11:19 08/19/25 07:30 08/19/25 11:19 Narrative Exam General: Chronically ill-appearing man with temporal wasting. PEG tube in place. Blind and deaf. Only responsive to tactile stimuli. Neurologic: No gross neurological deficit, and patient able to move all 4 extremities. HEENT: Normocephalic, atraumatic, mucous membranes moist. Pupils reactive to light. Heart: Regular rate and rhythm, normal S1 and S2, no murmurs. Lungs: Coarse breath sounds bilaterally. Abdomen: PEG tube in place. Previous surgical scar extending from the epigastrium along the right upper quadrant to the mid axillary line on the right. Soft, nondistended, nontender, positive bowel sounds. No guarding or rebound tenderness. Extremities: No edema. 2+ radial and dorsalis pedis pulses bilaterally. Skin: Warm. Dry. No rash or ecchymoses. Objective Labs 08/20/25 04:38 08/20/25 04:38 Labs: Laboratory Results - last 24 hr 08/18/25 08/18/25 08/18/25 19:50 20:30 23:46 WBC 10.8 H RBC 4.77 Hgb 14.3 Hct 42.5 MCV 89 MCH 30.0 MCHC 33.6 RDW Std Deviation 42.4 Plt Count 133 L Neut % (Auto) 92 H Lymph % (Auto) 1 L Clark % (Auto) 6 Eos % (Auto) 1 Baso % (Auto) 0 Neut # (Auto) 10.0 H Lymph # (Auto) 0.1 L Clark # (Auto) 0.6 Eos # (Auto) 0.1 Baso # (Auto) 0.0 Immature Gran # (Auto) 0.03 H Absolute Nucleated RBC 0.00 Immature Gran % 0 Nucleated RBC % 0 PT 12.2 INR 1.1 APTT 25.6 Sodium 141 Potassium 3.5 Chloride 101 Carbon Dioxide 26.7 Anion Gap 13 BUN 36 H Creatinine 1.0 Estim Creat Clear Calc 58.1 L eGFR > 60 BUN/Creatinine Ratio 36 H Glucose 148 H Calculated Osmolality 292 Lactic Acid 3.5 H 1.9 Calcium 9.5 Corrected Calcium 9.5 Phosphorus Magnesium Total Bilirubin 0.3 AST 40 H ALT 40 Alkaline Phosphatase 110 Troponin I < 0.020 Total Protein 6.6 Albumin 4.0 Globulin 2.6 Albumin/Globulin Ratio 1.5 Procalcitonin 0.28 Ur Collection Type Clean Catch Urine Color Lt-Yellow Urine Clarity Clear Urine pH 7.0 Ur Specific [place] 1.012 Urine Protein Negative Urine Glucose (UA) Negative Urine Ketones Negative Urine Blood Negative Urine Nitrite Negative Urine Bilirubin Negative Urine Urobilinogen (Auto) Negative Ur Leukocyte Esterase Negative Urine RBC 3 Urine WBC 2 Ur Squamous Epith Cells 1 Amorphous Crystals Present A Urine Bacteria Rare 08/19/25 08/19/25 00:25 05:20 WBC 11.6 H RBC 4.45 L Hgb 13.2 L Hct 40.0 L MCV 90 MCH 29.7 MCHC 33.0 RDW Std Deviation 42.8 Plt Count 123 L Neut % (Auto) 95 H Lymph % (Auto) 3 L Clark % (Auto) 2 Eos % (Auto) 0 Baso % (Auto) 0 Neut # (Auto) 11.1 H Lymph # (Auto) 0.3 L Clark # (Auto) 0.2 Eos # (Auto) 0.0 Baso # (Auto) 0.0 Immature Gran # (Auto) 0.03 H Absolute Nucleated RBC 0.00 Immature Gran % 0 Nucleated RBC % 0 PT INR APTT Sodium 143 Potassium 3.5 Chloride 106 Carbon Dioxide 27.1 Anion Gap 10 BUN 22 Creatinine 0.9 Estim Creat Clear Calc 64.5 eGFR > 60 BUN/Creatinine Ratio 24 H Glucose 145 H Calculated Osmolality 291 Lactic Acid Calcium 9.1 Corrected Calcium 9.3 Phosphorus 1.4 L Magnesium 1.6 2.1 Total Bilirubin 0.4 AST 42 H ALT 39 Alkaline Phosphatase 95 Troponin I 0.027 Total Protein 6.1 Albumin 3.8 Globulin 2.3 Albumin/Globulin Ratio 1.7 Procalcitonin Ur Collection Type Urine Color Urine Clarity Urine pH Ur Specific [place] Urine Protein Urine Glucose (UA) Urine Ketones Urine Blood Urine Nitrite Urine Bilirubin Urine Urobilinogen (Auto) Ur Leukocyte Esterase Urine RBC Urine WBC Ur Squamous Epith Cells Amorphous Crystals Urine Bacteria Quality Measures Quality Measures sepsis Current suspected stage: ruled out Possible source: pulmonary and genitourinary Blood cultures ordered: yes Antibiotic ordered: Yes Advance care planning discussed with:: patient and other Assessment & Plan Assessment Current Active Medications: Generic Name Dose Route Start Last Admin Trade Name Freq PRN Reason Stop Dose Admin Acetaminophen 1,000 mg 08/19/25 08:00 Acetaminophen Aruna 325 Mg/10 Ml Udc GT 09/17/25 23:49 Q6HR PRN Fever>99.9 Albuterol/Ipratropium 3 ml 08/18/25 23:04 Albuterol/Ipratropium (Duoneb) Rt Aruna 3 Ml Nebu INH 09/17/25 23:03 Q2HR PRN SHORTNESS OF BREATH OR WHEEZE Chlorthalidone 25 mg 08/19/25 10:45 08/19/25 12:08 Chlorthalidone 25 Mg Tablet (Non-Formulary) GT 09/18/25 10:44 25 mg QAM JOSÉ Administration Heparin Sodium (Porcine) 5,000 unit 08/19/25 09:00 08/19/25 08:37 Heparin Sod Inj 5000 Unit/Ml Vial SC 09/02/25 08:59 5,000 unit BID JOSÉ Administration Ceftriaxone Sodium/Dextrose 1 gm in 50 mls @ 100 mls/hr 08/18/25 23:46 08/19/25 08:36 Rocephin/D5w 1gm Iv Premix IV 08/25/25 23:45 100 mls/hr Q12HR JOSÉ Administration Metronidazole 500 mg in 100 mls @ 200 mls/hr 08/19/25 11:14 08/19/25 12:09 Flagyl 500 Mg Iv IV 09/26/25 11:13 200 mls/hr Q8HR JOSÉ Administration Levalbuterol HCl 0.63 mg 08/19/25 03:00 08/19/25 11:19 Levalbuterol Rt 0.63 Mg/3 Ml Nebu INH 09/18/25 02:59 0.63 mg Q4HRRT JOSÉ Administration Levetiracetam 500 mg 08/19/25 09:00 08/19/25 08:38 Levetiracetam 250 Mg Tablet GT 09/18/25 08:59 500 mg BID JOSÉ Administration Loratadine 10 mg 08/19/25 09:00 08/19/25 08:38 Loratadine 10 Mg Tablet GT 09/18/25 08:59 10 mg QDAY JOSÉ Administration Lorazepam 2 mg 08/19/25 21:00 Lorazepam 0.5 Mg Tablet GT 08/24/25 20:59 HS JOSÉ Melatonin 9 mg 08/19/25 21:00 Melatonin 3 Mg Tablet PO 09/18/25 20:59 HS [facility] Methylprednisolone Sodium Succinate 40 mg 08/19/25 02:15 08/19/25 05:53 Methylprednisolone Sod Succ 40 Mg/Ml Vial IV 08/26/25 02:14 40 mg Q8HR JOSÉ Administration Multivitamins 1 tab 08/19/25 09:00 08/19/25 08:37 Multivitamins Tablet GT 09/18/25 08:59 1 tab QDAY JOSÉ Administration Polyethylene Glycol 17 gm 08/19/25 09:00 08/19/25 08:37 Polyethylene Glycol 17 Gm Packet GT 09/18/25 08:59 17 gm QDAY JOSÉ Administration Quetiapine Fumarate 300 mg 08/19/25 21:00 Quetiapine Fumarate 100 Mg Tablet GT 09/18/25 20:59 HS JOSÉ Quetiapine Fumarate 100 mg 08/19/25 14:00 Quetiapine Fumarate 100 Mg Tablet GT 09/18/25 13:59 1400 JOSÉ Tamsulosin HCl 0.4 mg 08/19/25 09:00 08/19/25 08:38 Tamsulosin Hcl 0.4 Mg Capsule PO 09/18/25 08:59 0.4 mg QDAY JOSÉ Administration Plan Mr. Poole is a 71-year-old male with a past medical history of developmental delay, seizure disorder, prior PEG tube placement, colonic adenomatous polyps, and BPH who presented to [facility] Emergency Department on 08/18/20[facility] from his [facility] with a chief complaint of hypoxia. Admitted for acute hypoxic respiratory failure secondary to aspiration pneumonia evaluation and management. #Acute Hypoxic Respiratory Failure 2/2 #Aspiration pneumonia, vs community-acquired pneumonia #Leukocytosis #Bibasilar PNA #Lactic acidosis #HX recurrent pneumonia #Hx chronic bronchitis Patient was afebrile. He desaturated to 70s in his [facility]. Upon arrival patient was requiring supplemental oxygen on 6 L tachycardic, temp 102.8, respiratory rate 24, fever 102.8 sepsis alert initiated received fluids per sepsis protocol. SIRS 4/4 meeting severe sepsis criteria with organ damage of uptrending troponin ( 0.020 to 0.027) Lactic acid 3.5, improved after IV fluids to 1.9. Patient has a chronic history of recurrent pneumonia and bronchitis. Careful monitoring of lung status and sputum production is necessary, as increases in phlegm can lead to respiratory compromise. In the absence of aspiration, this may still progress to hypoxic respiratory failure. CBC: WBC 10.8.Pro-saeid 0.28. CXR:Left perihilar left basilar pneumonia. Lactic acidosis resolved. 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 He is no longer able to ambulate or engage in previous activities at baseline. Chest x-ray showed right third rib deformity Plan: * Physical therapy referral * Social work referral #Tachyarrhythmia #Hypomagnesemia Patient had an episode of tachyarrhythmia showing of atrial flutter with rapid ventricular response with rate of 139 and QTc 509. Troponin 0.027. Pt recieved 5ml NaCl rt x1, 60 meq KCl x1. Repeat EKG showed sinus tachycardia with rate 113 and QTc 450. Magnesium 2.1 Received aspirin 325 mg x 1 Received atorvastatin 80mg x1 Plan: * hospital monitor * Keep potassium over 4 and magnesium over 2 #Seizure disorder On home Keppra 500 mg twice daily, Ativan 2 mg at bedtime Plan: * Resumed home meds #Anxiety Home Seroquel 100mg at 14:00 and 300mg HS Plan: * Resumed home meds #BPH Plan: * Resume home tansulosin 0.4mg Qday #Constipation Plan: * Resumed home polyethylene glycol 17gm QDAY #S/P PEG tube 2022 Nursing did an aspiration trial of the patient's PEG tube on 08/19/2025, demonstrated appropriate bowel mobility Plan: * Dietary on board * Goal feed rate of 65 Hospital management: Lines: Peripheral IV Diet: PEG Bowel: MiraLAX DVT prophylaxis: Heparin 5000 units subcutaneously twice daily Disposition: Med tele being treated for acute upper respiratory for secondary to pneumonia. Added Flagyl to his regimen 08/19/2025. Continuing ceftriaxone. CODE STATUS: Full code Patient was seen and discussed with my attending physician Dr. Hank MCFADDEN and my senior resident Dr. Sourav MCFADDEN PGY-3. Juan David Barron DO PGY-1. Attending Provider Attestation/Addendum I Shaye Mckinney MD reviewed the note and agree with the resident's assessment & plan with modifications/additions/exceptions as below. I have personally reviewed labs, imaging, home meds/prior records, examined the patient, formulated and discussed management plan with the IM team. A 70-year-old male with history of seizure disorder, psychiatric disorder, developmental delay, nonverbal, legally blind both eyes with PEG tube in place sent to hospital after noting fever and difficulty breathing in a care home. Patient is admitted for potential aspiration pneumonia and atrial tachyarrhythmia. EKG and telemetry reviewed without any evidence of atrial fibrillation however patient likely has atrial tachycardia. Reportedly, procalcitonin, UA unremarkable. Will start Unasyn for potential aspiration pneumonia, discontinue systemic steroids, continue NG tube feeding with evaluation of gastric emptying in 6 hours. Continue home medications continue Keppra and rest of home medications.
--- NOTE | 2025-08-19 15:58 | PC.NURSE ---
Lay Out Inspector Shira called snf to verify patients supplemental feedings and times. snf verified patient gets fed 6 meals a day by bolus.Patient will reach goal rate of 60 at 1645 Jevity 1.2
--- NOTE | 2025-08-19 16:54 | PC.NURSE ---
Care provider is at bedside she notified me patient is having seizures. Patients twitching is a seizure according do Dr. Vasquez. I notified doctors and they are coming to bedside to talk to care provider.
[2025-08-19] MEDS: MELATONIN 3 MG TABLET 9 MG PO (20:11)
[2025-08-20] VITALS (15 sets, daily range): BP systolic 109–132; BP diastolic 56–80; PULSE 67–108; RESP 15–27; TEMP 36.4–36.9; O2SAT 92–99
[2025-08-20] MEDS: LEVALBUTEROL RT 0.63 MG/3 ML NEBU INH ×6 (02:13→22:30)
[2025-08-20] MEDS: metroNIDAZOLE/NS 500 MG IVPB 500 MG/100 ML BAG 200 MG IV ×3 (05:12→23:34)
[2025-08-20 05:28] LABS: Basophils # (Auto) 0.0 Thou/mm3 (0.0-0.2); Basophils % (Auto) 0 % (0-2.5); Eosinophils # (Auto) 0.0 Thou/mm3 (0.0-0.5); Eosinophils % (Auto) 0 % (0-10); Hematocrit 34.2 % (41.0-53.0); Hemoglobin 11.5 g/dL (13.5-16.0); Immature Granulocytes Auto 0.04 Thou/mm3 (0.00-0.00); Lymphocytes # (Auto) 0.4 Thou/mm3 (1.0-4.8); Lymphocytes % (Auto) 4 % (10-50); Mean Corpuscular HGB Conc 33.6 g/dl (31.0-37.0); Mean Corpuscular Hemoglobin 30.3 pg (25.0-35.0); Mean Corpuscular Volume 90 fL (80-100); Monocytes # (Auto) 0.4 Thou/mm3 (0.0-0.8); Monocytes % (Auto) 4 % (0-12); Neutrophils # (Auto) 10.2 Thou/mm3 (1.8-7.7); Neutrophils % (Auto) 92 % (37-80); Nucleated Red Blood Cell # 0.00 Thou/mm3 (0.00-0.00); Nucleated Red Blood Cell % 0 /100 WBC (0); Platelet Count 127 Thou/mm3 (140-440); RDW Standard Deviation 42.8 fL (35.1-43.9); Red Blood Count 3.80 Miln/mm3 (4.50-5.90); White Blood Count 11.2 Thou/mm3 (3.8-10.6)
[2025-08-20 05:52] LABS: Alanine Aminotransferase 47 U/L (10-49); Albumin, Serum 3.4 gm/dL (3.4-4.8); Albumin/Globulin Ratio 1.5 (1.2-2.2); Alkaline Phosphatase 82 U/L (46-116); Anion Gap 10 (7-16); Aspartate Amino Transferase 50 U/L (0-34); BUN/Creatinine Ratio 32 Ratio (12-20); Bilirubin,Total 0.2 mg/dL (0.3-1.2); Blood Urea Nitrogen 29 mg/dL (9-23); Calcium 8.4 mg/dL (8.3-10.6); Calcium (Corrected) 8.9 mg/dL (8.5-10.1); Carbon Dioxide 27.9 mMol/L (20.0-31.0); Chloride 105 mMol/L (98-107); Creatinine (Component) 0.9 mg/dL (0.6-1.3); Estimated Creatinine Clearance 62.1 mL/min (>60); Globulin 2.2 gm/dL (2.3-3.5); Glucose 168 mg/dL (74-106); Magnesium 2.1 mg/dL (1.6-2.6); Osmolality,Calculated 294 (275-295); Phosphorous 1.6 mg/dL (2.4-5.1); Potassium 3.3 mMol/L (3.4-5.1); Sodium 143 mMol/L (136-145); Total Protein 5.6 gm/dL (5.7-8.2); eGFR > 60 See Note
[2025-08-20] MEDS: POLYETHYLENE GLYCOL 17 GM PACKET GT (08:41)
[2025-08-20] MEDS: NAPH,KPH MBDB 1 PACKET (1.5 GM) 2 PACKET PO (08:41)
[2025-08-20] MEDS: POTASSIUM CHLORIDE 10% 20 MEQ/15 ML UDC 40 MEQ GT (08:41)
[2025-08-20] MEDS: cefTRIAXone/D5w 1gm IV premix 1 GM/50 ML BAG IV ×2 (08:41→21:30)
[2025-08-20] MEDS: CHLORTHALIDONE 25 MG TABLET (NON-FORMULARY) GT (08:42)
[2025-08-20] MEDS: TAMSULOSIN HCL 0.4 MG CAPSULE PO (08:42)
[2025-08-20] MEDS: HEPARIN SOD INJ 5000 UNIT/ML VIAL SC ×2 (08:43→21:30)
[2025-08-20] MEDS: MULTIVITAMINS TABLET 1 TAB GT (09:16)
--- NOTE | 2025-08-20 12:36 | PC.NURSE ---
Patients resiual was 300 ml feedings stopped for 6 hours. Feedings will be resumed at 18:30 at 30ml consistant rate
--- NOTE | 2025-08-20 14:00 | PC.NURSE ---
Called pharmacy and evert answered i notified him on [facility] they will find the two returned seroquel that i cancelled. 2 seroquel are in the internal bin
--- NOTE | 2025-08-20 14:38 | ESPR_ITS ---
<Statement entered by Eliud Campos MD - 08/20/25 16:07> No acute overnight events. Seen and examined at bedside. Currently saturating 100% on 2 L nasal cannula and other vital signs stable. CBC shows slightly improved leukocytosis, hemoglobin dropped from 13 to 11. K 3.3, phosphorus 1.6 and repleted. Urine culture shows no growth, blood culture no growth today. Will continue ceftriaxone and Flagyl and wean off oxygen as patient can tolerate. Anticipate discharge within next 24 to 48 hours. ----- Note reviewed and agree with care plan as documented. Please refer to the note below for further details. Plan discussed with attending physician Dr. Hank Campos MD PGY-2 Internal Medicine Documentation for date of: 08/20/25 Subjective Subjective Interval history: Yesterday afternoon the patient's feeds were tolerated well as the nurse aspirated no volume from the PEG tube. The morning of 08/20/2025 the nurse aspirated 300 mL of residual feeding volume and the patient's lungs had crackles. Out of concern for an aspiration event, tube feeds will be held for 6 hours and restarted at a rate of 30. Patient's blood cultures are negative after 24 hours. White count was 11.6 down to 11.2. Hemoglobin 11.5 which decreased from 13.2, potassium 3.3, phosphorus 1.6, both were repleted. Magnesium 2.1. Vitals were reviewed and are stable, patient saturating at 99% on 2 L nasal cannula. Exam Vital Signs Temp Pulse Resp BP Pulse Ox O2 Del Method O2 Flow Rate 97.7 F 101 H 17 132/77 H 92 L Nasal Cannula 1 08/20/25 12:08/20/25 12:08/20/25 12:08/20/25 12:08/20/25 12:08/20/25 12:08/20/25 12:00 Narrative Exam General: Chronically ill-appearing man with temporal wasting. PEG tube in place. Blind and deaf. Only responsive to tactile stimuli. Neurologic: No gross neurological deficit, and patient able to move all 4 extremities. HEENT: Normocephalic, atraumatic, mucous membranes moist. Pupils reactive to light. Heart: Regular rate and rhythm, normal S1 and S2, no murmurs. Lungs: Crackles bilaterally. Abdomen: PEG tube in place. Previous surgical scar extending from the epigastrium along the right upper quadrant to the mid axillary line on the right . Soft, nondistended, nontender, positive bowel sounds. No guarding or rebound tenderness. Extremities: No edema. 2+ radial and dorsalis pedis pulses bilaterally. Skin: Warm. Dry. No rash or ecchymoses. Objective Labs 08/21/25 04:37 08/21/25 04:37 Labs: Laboratory Results - last 24 hr 08/20/25 04:38 WBC 11.2 H RBC 3.80 L Hgb 11.5 L Hct 34.2 L MCV 90 MCH 30.3 MCHC 33.6 RDW Std Deviation 42.8 Plt Count 127 L Neut % (Auto) 92 H Lymph % (Auto) 4 L [place] % (Auto) 4 Eos % (Auto) 0 Baso % (Auto) 0 Neut # (Auto) 10.2 H Lymph # (Auto) 0.4 L [place] # (Auto) 0.4 Eos # (Auto) 0.0 Baso # (Auto) 0.0 Immature Gran # (Auto) 0.04 H Absolute Nucleated RBC 0.00 Immature Gran % 0 Nucleated RBC % 0 Sodium 143 Potassium 3.3 L Chloride 105 Carbon Dioxide 27.9 Anion Gap 10 BUN 29 H Creatinine 0.9 Estim Creat Clear Calc 62.1 eGFR > 60 BUN/Creatinine Ratio 32 H Glucose 168 H Calculated Osmolality 294 Calcium 8.4 Corrected Calcium 8.9 Phosphorus 1.6 L Magnesium 2.1 Total Bilirubin 0.2 L AST 50 H ALT 47 Alkaline Phosphatase 82 Total Protein 5.6 L Albumin 3.4 Globulin 2.2 L Albumin/Globulin Ratio 1.5 Quality Measures Quality Measures sepsis Current suspected stage: ruled out Possible source: pulmonary and genitourinary Blood cultures ordered: yes Antibiotic ordered: Yes Advance care planning discussed with:: other Assessment & Plan Assessment Current Active Medications: Generic Name Dose Route Start Last Admin Trade Name Freq PRN Reason Stop Dose Admin Acetaminophen 1,000 mg 08/19/25 08:00 Acetaminophen Aruna 325 Mg/10 Ml Udc GT 09/17/25 23:49 Q6HR PRN Fever>99.9 Albuterol/Ipratropium 3 ml 08/18/25 23:04 Albuterol/Ipratropium (Duoneb) Rt Aruna 3 Ml Nebu INH 09/17/25 23:03 Q2HR PRN SHORTNESS OF BREATH OR WHEEZE Chlorthalidone 25 mg 08/19/25 10:45 08/20/25 08:42 Chlorthalidone 25 Mg Tablet (Non-Formulary) GT 09/18/25 10:44 25 mg QAM JOSÉ Administration Heparin Sodium (Porcine) 5,000 unit 08/19/25 09:00 08/20/25 08:43 Heparin Sod Inj 5000 Unit/Ml Vial SC 09/02/25 08:59 5,000 unit BID JOSÉ Administration Ceftriaxone Sodium/Dextrose 1 gm in 50 mls @ 100 mls/hr 08/18/25 23:46 08/20/25 08:41 Rocephin/D5w 1gm Iv Premix IV 08/25/25 23:45 100 mls/hr Q12HR JOSÉ Administration Metronidazole 500 mg in 100 mls @ 200 mls/hr 08/19/25 11:14 08/20/25 13:41 Flagyl 500 Mg Iv IV 08/26/25 11:13 200 mls/hr Q8HR JOSÉ Administration Levalbuterol HCl 0.63 mg 08/19/25 03:00 08/20/25 11:21 Levalbuterol Rt 0.63 Mg/3 Ml Nebu INH 09/18/25 02:59 0.63 mg Q4HRRT JOSÉ Administration Levetiracetam 500 mg 08/19/25 09:00 08/20/25 08:41 Levetiracetam 250 Mg Tablet GT 09/18/25 08:59 500 mg BID JOSÉ Administration Loratadine 10 mg 08/19/25 09:00 08/20/25 08:43 Loratadine 10 Mg Tablet GT 09/18/25 08:59 10 mg QDAY JOSÉ Administration Lorazepam 2 mg 08/20/25 21:00 Lorazepam 0.5 Mg Tablet GT 08/25/25 20:59 HS JOSÉ Melatonin 9 mg 08/19/25 21:00 08/19/25 20:11 Melatonin 3 Mg Tablet PO 09/18/25 20:59 9 mg HS JOSÉ Administration Multivitamins 1 tab 08/19/25 09:00 08/20/25 09:16 Multivitamins Tablet GT 09/18/25 08:59 1 tab QDAY JOSÉ Administration Polyethylene Glycol 17 gm 08/19/25 09:00 08/20/25 08:41 Polyethylene Glycol 17 Gm Packet GT 09/18/25 08:59 17 gm QDAY JOSÉ Administration Quetiapine Fumarate 300 mg 08/19/25 21:00 08/19/25 20:11 Quetiapine Fumarate 100 Mg Tablet GT 09/18/25 20:59 300 mg HS JOSÉ Administration Quetiapine Fumarate 100 mg 08/19/25 14:00 08/20/25 13:47 Quetiapine Fumarate 100 Mg Tablet GT 09/18/25 13:59 100 mg 1400 JOSÉ Administration Tamsulosin HCl 0.4 mg 08/19/25 09:00 08/20/25 08:42 Tamsulosin Hcl 0.4 Mg Capsule PO 09/18/25 08:59 0.4 mg QDAY JOSÉ Administration Plan Mr. Poole is a 71-year-old male with a past medical history of developmental delay, seizure disorder, prior PEG tube placement, colonic adenomatous polyps, and BPH who presented to [facility] Emergency Department on 08/18/2025 from his [place] [facility] with a chief complaint of hypoxia. Admitted for acute hypoxic respiratory failure secondary to aspiration pneumonia evaluation and management. #Acute Hypoxic Respiratory Failure 2/2 #Aspiration pneumonia, vs community-acquired pneumonia #Leukocytosis #Bibasilar PNA #Lactic acidosis #HX recurrent pneumonia #Hx chronic bronchitis Patient was afebrile. He desaturated to 70s in his [place] [facility] facility. Upon arrival patient was requiring supplemental oxygen on 6 L tachycardic, temp 102.8, respiratory rate 24, fever 102.8 sepsis alert initiated received fluids per sepsis protocol. SIRS 4/4 meeting severe sepsis criteria with organ damage of uptrending troponin ( 0.020 to 0.027) Lactic acid 3.5, improved after IV fluids to 1.9. Patient has a chronic history of recurrent pneumonia and bronchitis. Careful monitoring of lung status and sputum production is necessary, as increases in phlegm can lead to respiratory compromise. In the absence of aspiration, this may still progress to hypoxic respiratory failure. CXR:Left perihilar left basilar pneumonia. Lactic acidosis resolved. 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 He is no longer able to ambulate or engage in previous activities at baseline. Chest x-ray showed right third rib deformity Plan: * Physical therapy referral * Social work referral #Tachyarrhythmia #Hypomagnesemia Patient had an episode of tachyarrhythmia showing of atrial flutter with rapid ventricular response with rate of 139 and QTc 509. Troponin 0.027. Pt recieved 5ml NaCl rt x1, 60 meq KCl x1. Repeat EKG showed sinus tachycardia with rate 113 and QTc 450. Magnesium 2.1 Received aspirin 325 mg x 1 Received atorvastatin 80mg x1 Plan: * yarn twister * Keep potassium over 4 and magnesium over 2 #Seizure disorder On home Keppra 500 mg twice daily, Ativan 2 mg at bedtime Plan: * Resumed home meds #Anxiety Home Seroquel 100mg at 14:00 and 300mg HS Plan: * Resumed home meds #BPH Plan: * Resume home tansulosin 0.4mg Qday #Constipation Plan: * Resumed home polyethylene glycol 17gm QDAY #S/P PEG tube 2022 Nursing did an aspiration trial of the patient's PEG tube on 08/19/2025, demonstrated appropriate bowel mobility Aspiration try 08/20/2025 showed about 300 mL of residual feed volume. Plan: * Will hold feeds until later in the day, restart at a rate of 30 * Dietary on board * Goal feed rate of 65 Hospital management: Lines: Peripheral IV Diet: PEG Bowel: MiraLAX DVT prophylaxis: Heparin 5000 units subcutaneously twice daily Disposition: Med tele being treated for acute upper respiratory for secondary to pneumonia. Added Flagyl to his regimen 08/19/2025. Continuing ceftriaxone. Will hold feeds for a few hours and retry at a lower rate. CODE STATUS: Full code Patient was seen and discussed with my attending physician Dr. Hank MCFADDEN and my senior resident Dr. Beth MCFADDEN PGY-2. Juan David Barron DO PGY-1. Attending Provider Attestation/Addendum I Shaye Mckinney MD reviewed the note and agree with the resident's assessment & plan with modifications/additions/exceptions as below. I have personally reviewed labs, imaging, home meds/prior records, examined the patient, formulated and discussed management plan with the IM team. A 70-year-old male with history of seizure disorder, psychiatric disorder, developmental delay, nonverbal, legally blind both eyes with PEG tube in place sent to hospital after noting fever and difficulty breathing in a [facility]. Patient is admitted for potential aspiration pneumonia and atrial tachyarrhythmia. EKG and telemetry reviewed without any evidence of atrial fibrillation however patient likely has atrial tachycardia. Continue Unasyn for potential aspiration pneumonia, discontinue systemic steroids. Patient has significant residual from the OG, discontinue tube feeding and will restart at a lower rate in 6 hours Continue home medications continue Keppra and rest of home medications.
[2025-08-20] MEDS: DEXTROSE 5%-LACTATED RINGERS 1,000 ML 75 ML IV (18:01)
--- NOTE | 2025-08-20 18:30 | PC.NURSE ---
started patient feeding at 30ml an hour
[2025-08-20] MEDS: MELATONIN 3 MG TABLET 9 MG PO (21:29)
[2025-08-21] VITALS (8 sets, daily range): BP systolic 93–99; BP diastolic 52–60; PULSE 56–76; RESP 12–18; TEMP 36.1–36.6; O2SAT 94–99
[2025-08-21] MEDS: LEVALBUTEROL RT 0.63 MG/3 ML NEBU INH ×3 (03:22→11:06)
[2025-08-21 05:29] LABS: Basophils # (Auto) 0.0 Thou/mm3 (0.0-0.2); Basophils % (Auto) 0 % (0-2.5); Eosinophils # (Auto) 0.0 Thou/mm3 (0.0-0.5); Eosinophils % (Auto) 0 % (0-10); Hematocrit 33.1 % (41.0-53.0); Hemoglobin 10.7 g/dL (13.5-16.0); Immature Granulocytes Auto 0.04 Thou/mm3 (0.00-0.00); Lymphocytes # (Auto) 1.2 Thou/mm3 (1.0-4.8); Lymphocytes % (Auto) 15 % (10-50); Mean Corpuscular HGB Conc 32.3 g/dl (31.0-37.0); Mean Corpuscular Hemoglobin 29.6 pg (25.0-35.0); Mean Corpuscular Volume 91 fL (80-100); Monocytes # (Auto) 0.9 Thou/mm3 (0.0-0.8); Monocytes % (Auto) 11 % (0-12); Neutrophils # (Auto) 6.1 Thou/mm3 (1.8-7.7); Neutrophils % (Auto) 74 % (37-80); Nucleated Red Blood Cell # 0.00 Thou/mm3 (0.00-0.00); Nucleated Red Blood Cell % 0 /100 WBC (0); Platelet Count 121 Thou/mm3 (140-440); RDW Standard Deviation 44.3 fL (35.1-43.9); Red Blood Count 3.62 Miln/mm3 (4.50-5.90); White Blood Count 8.3 Thou/mm3 (3.8-10.6)
[2025-08-21] MEDS: metroNIDAZOLE/NS 500 MG IVPB 500 MG/100 ML BAG 200 MG IV (06:12)
[2025-08-21 06:14] LABS: Alanine Aminotransferase 45 U/L (10-49); Albumin, Serum 3.2 gm/dL (3.4-4.8); Albumin/Globulin Ratio 1.7 (1.2-2.2); Alkaline Phosphatase 72 U/L (46-116); Anion Gap 8 (7-16); Aspartate Amino Transferase 47 U/L (0-34); BUN/Creatinine Ratio 26 Ratio (12-20); Bilirubin,Total < 0.2 mg/dL (0.3-1.2); Blood Urea Nitrogen 21 mg/dL (9-23); Calcium 8.4 mg/dL (8.3-10.6); Calcium (Corrected) 9.0 mg/dL (8.5-10.1); Carbon Dioxide 30.7 mMol/L (20.0-31.0); Chloride 105 mMol/L (98-107); Creatinine (Component) 0.8 mg/dL (0.6-1.3); Estimated Creatinine Clearance 69.9 mL/min (>60); Globulin 1.9 gm/dL (2.3-3.5); Glucose 119 mg/dL (74-106); Magnesium 1.8 mg/dL (1.6-2.6); Osmolality,Calculated 290 (275-295); Phosphorous 1.7 mg/dL (2.4-5.1); Potassium 3.5 mMol/L (3.4-5.1); Sodium 144 mMol/L (136-145); Total Protein 5.1 gm/dL (5.7-8.2); eGFR > 60 See Note
[2025-08-21] MEDS: POLYETHYLENE GLYCOL 17 GM PACKET GT (08:08)
[2025-08-21] MEDS: cefTRIAXone/D5w 1gm IV premix 1 GM/50 ML BAG IV (08:08)
[2025-08-21] MEDS: CHLORTHALIDONE 25 MG TABLET (NON-FORMULARY) GT (08:09)
[2025-08-21] MEDS: TAMSULOSIN HCL 0.4 MG CAPSULE PO (08:09)
[2025-08-21] MEDS: HEPARIN SOD INJ 5000 UNIT/ML VIAL SC (08:09)
[2025-08-21] MEDS: MULTIVITAMINS TABLET 1 TAB GT (08:10)
[2025-08-21] MEDS: NAPH,KPH MBDB 1 PACKET (1.5 GM) GT (09:12)
--- NOTE | 2025-08-21 11:30 | PC.RT ---
pt titrated to room air post breathing tx, RT remained in room to ensure that o2 sats were maintained above 92% post-titration, pt maintaining o2 sats of 94-95%.
--- NOTE | 2025-08-21 13:02 | ESDS_ITS ---
<Statement entered by Eliud Campos MD - 08/21/25 15:08> Note reviewed and agree with care plan as documented. Please refer to the note below for further details. Plan discussed with attending physician Dr. Hank Campos MD PGY-2 Internal Medicine Planned Discharge Date 08/21/25 DS: Providers Provider Date of admission: 08/18/25 22:27 Primary care physician: Ko Olea MD Admitting Provider: Indio Greenwood MD Attending Provider on Admission: Indio Greenwood MD Consults: 08/18/25 23:24 Referral Registered Dietitian Routine Comment: PEG tube 08/19/25 08:00 Referral Wound Care Routine Comment: stage 1 to bilat buttock upper back Attending Provider on DC: Shaye Mckinney MD Discharging Provider: Juan David Barron DO PGY-1 DS: Diagnosis Discharge Diagnosis (1) Pneumonia: Status: Acute Qualifiers: Pneumonia type: aspiration pneumonia Problem List Completed Was Problem List Reviewed/Reconciled?: Yes Hospital Course Hospital Course Hospital course: Hospital Course: Tulio Poole is a 71-year-old male with a past medical history of developmental delay, seizure disorder, prior PEG tube placement, colonic adenomatous polyps, legally blind and deaf, and BPH who presented to [facility] Emergency Department on 08/18/2025 from his snf with a chief complaint of hypoxia. He was admitted for acute hypoxic respiratory failure secondary to aspiration pneumonia. The patient was treated with ceftriaxone and Flagyl during his hospital stay. His respiratory status improved. During his stay, the patient had fluctuations in his ability to tolerate tube feeds. The appropriate rate was determined and he will be discharged with instructions on maintaining that rate. Regarding his aspiration pneumonia, the patient will be discharged to his snf on an oral course of antibiotics. Problem List: #Acute Hypoxic Respiratory Failure 2/2 #Aspiration pneumonia, vs community-acquired pneumonia #Leukocytosis #Bibasilar PNA #Lactic acidosis #HX recurrent pneumonia #Hx chronic bronchitis #Functional decline #Suspected right 3nd rib fracture #Tachyarrhythmia #Hypomagnesemia #Seizure disorder #Anxiety #BPH #Constipation #Status post PEG tube placement 2022 Discharge Instructions: * You are being prescribed an antibiotic to take after leaving the hospital. Take your amoxicillin clavulanate twice a day and complete the entire bottle. If you miss a dose, do not stack doses. Take the next dose at the appropriate time of day. * Regarding tube feeds: 200 cc every 6 hours for tube feedings, 200 cc every 4 hours for water flushes. * Continue taking all other home medications as prescribed. * Follow-up with PCP within 1-2 weeks of discharge. * If you do not have a PCP, you can follow-up at the [facility]. * Return to ED if symptoms worsen. The patient was seen and discussed with my attending physician Dr. Mckinney and my senior resident Dr. Beth MCFADDEN PGY-2. Juan David Barron DO PGY-1 Time Spent with Patient Time attestation: Total time spent providing and/or coordinating discharge services: More than 50%. Time spent: Greater than 30 minutes Exam Vital Signs Temp Pulse Resp BP Pulse Ox O2 Del Method O2 Flow Rate 97.9 F 66 17 96/55 L 99 Nasal Cannula 1 08/21/25 08:00 08/21/25 11:06 08/21/25 11:06 08/21/25 08:09 08/21/25 11:06 08/21/25 08:00 08/21/25 08:00 Narrative Exam General: Chronically ill-appearing man with temporal wasting. PEG tube in pl [address]. Blind and deaf. Only responsive to tactile stimuli. Neurologic: No gross neurological deficit, and patient able to move all 4 extremities. HEENT: Normocephalic, atraumatic, mucous membranes moist. Pupils reactive to light. Heart: Regular rate and rhythm, normal S1 and S2, no murmurs. Lungs: Coarse breath sounds bilaterally. Abdomen: PEG tube in place. Previous surgical scar extending from the epigastrium along the right upper quadrant to the mid axillary line on the right . Soft, nondistended, nontender, positive bowel sounds. No guarding or rebound tenderness. Extremities: No edema. 2+ radial and dorsalis pedis pulses bilaterally. Skin: Warm. Dry. No rash or ecchymoses. Discharge Plan Plan Patient Disposition: HOME (Self Care) Disposition Comment[facility] Patient condition on transfer: Stable Care Plan Goals: * You are being prescribed an antibiotic to take after leaving the hospital. Take your amoxicillin clavulanate twice a day and complete the entire bottle. If you miss a dose, do not stack doses. Take the next dose at the appropriate time of day. * Regarding tube feeds: 200 cc every 6 hours for tube feedings, 200 cc every 4 hours for water flushes. * Continue taking all other home medications as prescribed. * Follow-up with PCP within 1-2 weeks of discharge. * If you do not have a PCP, you can follow-up at the [facility]. * Return to ED if symptoms worsen. Prescriptions/Referrals Prescriptions/Med Rec: New amoxicillin-pot clavulanate 875-125 mg tablet 1 tab PO BID 5 Days Qty: 10 0RF Continued lorazepam 2 mg tablet 2 mg feeding tube HS loratadine 10 mg tablet 10 mg feeding tube QDAY naproxen 500 mg tablet 500 mg feeding tube BID Rx Instructions: with food chlorthalidone 25 mg tablet 25 mg feeding tube QAM tamsulosin 0.4 mg Capsule 0.4 mg PO QDAY Rx Instructions: via gtube polyethylene glycol 3350 [ClearLax] 17 gram/dose powder 17 g feeding tube DAILY Rx Instructions: with 8 ounces of water or juice calcium carbonate-vitamin D3 600 mg calcium- 200 unit Tablet,Chewable 1 tab PO BID Rx Instructions: via gtube quetiapine 100 mg tablet 100 mg feeding tube 1400 Rx Instructions: in the afternoon levetiracetam 500 mg tablet 500 mg PO BID Rx Instructions: via gtube quetiapine 300 mg tablet 300 mg feeding tube HS melatonin 10 mg Tablet 10 mg feeding tube HS multivitamin [One Daily Multivitamin] Tablet 1 tab feeding tube DAILY Referrals: Ko Olea MD [Primary Care Provider, Family Practice] Patient/Caregiver Discharge Instructions Education Materials: What Is Pneumonia?, ED Pneumonia (Adult) Print Language: Citizen Of [place] Stand Alone Forms: Milana Award Info., Patient Portal Info Letter Discharge Order Discharge Orders: Discharge (Routine); Ordered 08/21/25 Ordered By: Eliud Lovell Inmakenzie Quality Discharge Quality Measures none MD Attestestation Attestation I Shaye Mckinney MD reviewed the note and agree with the resident's assessment & plan with modifications/additions/exceptions as below. I have personally reviewed labs, imaging, home meds/prior records, examined the patient, formulated and discussed management plan with the IM team. A 70-year-old male with history of seizure disorder, psychiatric disorder, developmental delay, nonverbal, legally blind both eyes with PEG tube in place sent to hospital after noting fever and difficulty breathing in a intermediate. Patient is admitted for potential aspiration pneumonia and atrial tachyarrhythmia. EKG and telemetry reviewed without any evidence of atrial fibrillation however patient likely has atrial tachycardia. No residuals from gastric following reinitiation of lower rate of tube feeding.will recommend decreasing dose of tube feeding to 40 mL an hour along with free water flushes of 50 mL an hour. Will switch antibiotics to oral form with Augmentin to complete a total of 7 days, continue home medications continue Keppra and rest of home medications.
== END 2025-08-21 13:48 | disposition home or self-care (01) | DRG 193 ==
LOC: SERX 22:45 → SERHOLD 23:04 → S3SX 08-19 00:48
PROVIDERS: Admitting Provider Student in an Organized Health Care Education/Training Program; Emergency Provider Emergency Medicine; PCP Family Medicine; Visit Provider Student in an Organized Health Care Education/Training Program
DX: J18.9 Pneumonia, unspecified organism (principal); J96.01 Acute respiratory failure with hypoxia; R65.20 Severe sepsis without septic shock; E87.20 Acidosis, unspecified; I48.92 Unspecified atrial flutter; J69.0 Pneumonitis due to inhalation of food and vomit; F41.9 Anxiety disorder, unspecified; H54.8 Legal blindness, as defined in USA; H91.90 Unspecified hearing loss, unspecified ear; Z87.01 Personal history of pneumonia (recurrent); R53.81 Other malaise; E83.42 Hypomagnesemia; G40.909 Epilepsy, unspecified, not intractable, without status epilepticus; N40.0 Benign prostatic hyperplasia without lower urinary tract symptoms; K59.00 Constipation, unspecified; J42 Unspecified chronic bronchitis; R32 Unspecified urinary incontinence; M95.4 Acquired deformity of chest and rib; Z79.899 Other long term (current) drug therapy; Z93.1 Gastrostomy status
CPT/HCPCS: 36415; 71045; 71111; 80053; 81001; 83605; 83735; 84100; 84145; 84484; 85025; 85610; 85730; 87040; 87081; 87086; 87400; 87811; 89220; 93005; 93225; 94640; 94762; 96365; 96366; 96375; 99285; J0131; J0692; J0696; J1644; J1953; J2919; J3373; J3475; J3490; J7030; J7050; J7121; A9270; J1836

== ENCOUNTER 2025-09-20 07:40 | Emergency (ER) | payer MEDICARE, MEDICAID, SELFPAY ==
[2025-09-20 07:41] VITALS: BMI 21.9
[2025-09-20 08:00] VITALS: BP 132/79; PULSE 98; RESP 18; TEMP 36.7; O2SAT 97
--- NOTE | 2025-09-20 08:02 | XR_ITS ---
Examination: Abdomen AP single view Technique: AP portable supine abdomen, single view Exam date and time: September 20, 2025, 0805 hours INDICATIONS: Abdominal distention today FINDINGS: Moderate to large amount of stool throughout the colon Gastrostomy tube left abdomen Surgical clips upper right abdomen No free air IMPRESSION: Moderate to large amount of stool throughout the colon
--- NOTE | 2025-09-20 08:05 | PD.EDRME ---
Rapid Medical Screening Exam RME Arrival date/time: 09/20/25 07:40 70-year-old male with a history of developmentally delayed, presents to the emergency room with a chief complaint of abdominal distention. Per caregiver the G-tube is clogged. I have greeted and performed a focused initial assessment of this patient. A comprehensive ED assessment and evaluation of the patient, analysis of all test results, and completion of the medical decision making process will be conducted by additional ED providers. Chief Complaint: Abdominal Pain Time Seen by Provider: 09/20/25 07:51 Vital signs: Vital Signs Temperature 98.1 F 09/20/25 08:00 Pulse Rate 98 09/20/25 08:00 Respiratory Rate 18 09/20/25 08:00 Blood Pressure 132/79 H 09/20/25 08:00 Pulse Oximetry (%) 97 09/20/25 08:00 Oxygen Delivery Method Room Air 09/20/25 08:00 Vital signs reviewed by provider: Yes
[2025-09-20 08:49] LABS: Basophils # (Auto) 0.1 Thou/mm3 (0.0-0.2); Basophils % (Auto) 1 % (0-2.5); Eosinophils # (Auto) 0.7 Thou/mm3 (0.0-0.5); Eosinophils % (Auto) 6 % (0-10); Hematocrit 44.9 % (41.0-53.0); Hemoglobin 14.5 g/dL (13.5-16.0); Immature Granulocytes Auto 0.04 Thou/mm3 (0.00-0.00); Lymphocytes # (Auto) 1.7 Thou/mm3 (1.0-4.8); Lymphocytes % (Auto) 15 % (10-50); Mean Corpuscular HGB Conc 32.3 g/dl (31.0-37.0); Mean Corpuscular Hemoglobin 28.9 pg (25.0-35.0); Mean Corpuscular Volume 90 fL (80-100); Monocytes # (Auto) 1.2 Thou/mm3 (0.0-0.8); Monocytes % (Auto) 11 % (0-12); Neutrophils # (Auto) 7.2 Thou/mm3 (1.8-7.7); Neutrophils % (Auto) 67 % (37-80); Nucleated Red Blood Cell # 0.00 Thou/mm3 (0.00-0.00); Nucleated Red Blood Cell % 0 /100 WBC (0); Platelet Count 158 Thou/mm3 (140-440); RDW Standard Deviation 42.2 fL (35.1-43.9); Red Blood Count 5.01 Miln/mm3 (4.50-5.90); White Blood Count 10.8 Thou/mm3 (3.8-10.6)
[2025-09-20 09:42] LABS: Alanine Aminotransferase 31 U/L (10-49); Alkaline Phosphatase 108 U/L (46-116); Anion Gap 11 (7-16); Aspartate Amino Transferase 34 U/L (0-34); BUN/Creatinine Ratio 16 Ratio (12-20); Bilirubin,Total 0.3 mg/dL (0.3-1.2); Blood Urea Nitrogen 16 mg/dL (9-23); Calcium 10.8 mg/dL (8.3-10.6); Carbon Dioxide 29.2 mMol/L (20.0-31.0); Chloride 100 mMol/L (98-107); Creatinine (Component) 1.0 mg/dL (0.6-1.3); Estimated Creatinine Clearance 60.0 mL/min (>60); Glucose 89 mg/dL (74-106); Lipase 31 U/L (12-53); Osmolality,Calculated 279 (275-295); Potassium 4.0 mMol/L (3.4-5.1); Sodium 140 mMol/L (136-145); Total Protein 7.1 gm/dL (5.7-8.2); eGFR > 60 See Note
[2025-09-20 10:06] LABS: Albumin, Serum 4.7 gm/dL (3.4-4.8); Albumin/Globulin Ratio 2.0 (1.2-2.2); Calcium (Corrected) 10.8 mg/dL (8.5-10.1); Globulin 2.4 gm/dL (2.3-3.5)
--- NOTE | 2025-09-20 11:44 | PD.EDABDPN ---
ED Abdominal Pain RME/HPI General Chief Complaint: Abdominal Pain Stated complaint: ABD DISTENTION AND G TUBE BLOCKED Time seen by provider: 09/20/25 07:51 Arrival date/time: 09/20/25 07:40 Source: patient and other (Caregiver) Mode of arrival: wheelchair Limitations: physical limitation RME / HPI RME / HPI narrative: 09/20/25 07:40 70-year-old male with a history of developmentally delayed, presents to the emergency room with a chief complaint of abdominal distention. Per caregiver the G-tube is clogged. I have greeted and performed a focused initial assessment of this patient. A comprehensive ED assessment and evaluation of the patient, analysis of all test results, and completion of the medical decision making process will be conducted by additional ED providers. Dr. Piedra evaluation. Patient is a 70-year-old male with medical history notable for developmental delay brought to the emergency department brought in by his caregiver with concerns for abdominal distention, possible clogged G-tube. Caregiver states that patient gets frequent blocked G-tube. He is behaving at his neurologic baseline. Patient is nonverbal, deaf and blind at baseline. Patient has been taking his medication as prescribed. No nausea no vomiting no diarrhea. Patient is having regular bowel movements, nonbloody no hematuria. Patient has not had any fever Related Data Home Medications ?Medication ?Instructions ?Recorded ?Confirmed loratadine 10 mg tablet 10 mg feeding tube QDAY 10/25/22 08/19/25 lorazepam 2 mg tablet 2 mg feeding tube HS 10/25/22 08/19/25 naproxen 500 mg tablet 500 mg feeding tube BID 10/25/22 08/19/25 chlorthalidone 25 mg tablet 25 mg feeding tube QAM 06/16/23 08/19/25 calcium carbonate-vitamin D3 600 1 tab PO BID 10/07/24 08/19/25 mg calcium-200 unit chewable tablet levetiracetam 500 mg tablet 500 mg PO BID 10/07/24 08/19/25 melatonin 10 mg tablet 10 mg feeding tube HS 10/07/24 08/19/25 polyethylene glycol 3350 17 17 g feeding tube DAILY 10/07/24 08/19/25 gram/dose oral powder (ClearLax) quetiapine 100 mg tablet 100 mg feeding tube 1400 10/07/24 08/19/25 quetiapine 300 mg tablet 300 mg feeding tube HS 10/07/24 08/19/25 tamsulosin 0.4 mg capsule 0.4 mg PO QDAY 10/07/24 08/19/25 multivitamin (One Daily 1 tab feeding tube DAILY 08/19/25 08/19/25 Multivitamin tablet) Previous Rx's ?Medication ?Instructions ?Recorded bisacodyl 10 mg rectal suppository 10 mg MS QDAY PRN constipation #7 09/20/25 (Dulcolax (bisacodyl)) ea Allergies Allergy/AdvReac Type Severity Reaction Status Date / Time Penicillins Allergy Intermediate Hives Verified 09/20/25 07:43 ED Exam General Limitations: Present physical limitation Head Head exam: Present other (Patient with sunken eyes, thin appearing) ENT ENT exam: Present normal exam Neck Neck exam: Present normal inspection Chest Chest inspection: Present normal inspection Respiratory Respiratory exam: Absent respiratory distress Cardiovascular Cardiovascular exam: Present regular rate Abdominal Exam Abdominal exam: Present soft (G-tube in place); Absent distention, tenderness or guarding exam: Present normal inspection Extremities Exam Extremities exam: Present other (Contractures of all 4 extremities) Neurological Exam Neurological exam: Present alert and other (Minimal movement of all 4 extremities, does not follow commands, behaving at his neurologic baseline) Skin Skin exam: Present warm, dry and intact Course Quality Measures none Orders Category Date Time Status CT Screening NOW Care 09/20/25 11:[address] abdomen pelvis w con Stat Exams 09/20/25 11:46 Completed XR abdomen 1V Stat Exams 09/20/25 08:02 Completed XR abdomen 1V Stat Exams 09/20/25 21:11 Completed CBC Stat Lab 09/20/25 08:27 Completed CMP [Comprehensive Metabolic Panel] Stat Lab 09/20/25 08:27 Completed Lipase Stat Lab 09/20/25 08:27 Completed HYDROmorphone INJ [Dilaudid Inj] Med 09/20/25 18:22 Discontinued 1 mg IVP X1 ONE Magnesium Citrate Liqd [Citrate of Magnesia Liqd] Med 09/20/25 19:48 Discontinued 150 ml PO X1 ONE bisacodyL [Dulcolax Supp] Med 09/20/25 19:48 Discontinued 10 mg MS X1 ONE Vital Signs Vital signs: Vital Signs Temperature 98.1 F 09/20/25 08:00 Pulse Rate 98 09/20/25 08:00 Respiratory Rate 18 09/20/25 08:00 Blood Pressure 132/79 H 09/20/25 08:00 Pulse Oximetry (%) 97 09/20/25 08:00 Oxygen Delivery Method Room Air 09/20/25 08:00 Abdominal Pain MDM MDM Narrative MDM Narrative:: Patient is a 20-year-old male is in the emerged from concerns for abdominal distention and possible clogged G-tube. Patient has a history of mental delay,. Vital signs and exam as listed. Patient was evaluated by prior provider, manage labs abdominal x-ray. Concern for obstruction, blocked G-tube, pancreatitis, urinary tract infection among others. Labs without any significant acute hematologic abnormality, no significant acute electrolyte abnormality or metabolic derangement. KUB with evidence of significant stool burden. G-tube is in the left abdomen. Ordered CT abdomen pelvis with contrast. CT abdomen pelvis with gastrostomy tube in satisfactory position, moderate colonic ileus, hyperdense mass in the body of the pancreas, no pancreatic mass, dilated common bile duct however normal LFTs. Patient with an 8 mm left renal calculus, 2 and 3 mm calculi in the right renal pelvis with mild wall thickening however urinalysis does not have evidence of infection. No hydronephrosis. Renal function normal. Nursing staff attempted to flush PEG tube however they were unable to get the PEG tube to flush. We will exchange the PEG tube. Given patient's constipation will provide patient with a bowel regimen as well. I attempted to flush patient's PEG tube was unable to. I exchanged patient's PEG tube without any difficulties. Placed a 20 Cymro, inflated with 10 cc of saline. Ordered Gastrografin study to confirm placement, which showed appropriate placement. Patient will be discharged he is hemodynamically stable and not in distress. Patient data External records reviewed:: [facility] previous records Clinical information provided by:: guardian Social determinants that could affect healthcare access:: mental health Patient has the following chronic illnesses:: See MDM How is presenting disease/condition affected by chronic disease/condition?: exacerbated by Evaluation data The following diagnostics were reviewed and interpreted by me:: lab results and radiology exam(s) Lab and/or radiology exams considered but not ordered:: None Interpretation Summary: See above Medications / Prescriptions Medications or Prescriptions considered but not ordered:: None Medication administrations:: Medication Administration History Discontinued Medications Bisacodyl (Bisacodyl 10 Mg Supp) 10 mg MS X1 ONE; Protocol Stop: 09/20/25 19:49 Last Admin: 09/20/25 22:10 Dose: 10 mg Documented By: DAISY Hydromorphone HCl (Hydromorphone Inj 2 Mg/Ml Vial) 1 mg IVP X1 ONE Stop: 09/20/25 18:23 Last Admin: 09/20/25 18:55 Dose: Not Given Documented By: GM Non-Admin Reason: Discontinued Magnesium Citrate (Magnesium Citrate 300 Ml Btl) 150 ml PO X1 ONE Stop: 09/20/25 19:49 Last Admin: 09/20/25 22:10 Dose: 150 ml Documented By: DAISY See above Consultations Consultation(s) initiated? (list below): No Diagnosis Differential diagnosis abdominal pain: other Most likely diagnosis given after review of the tests above:: Constipation, obstructed PEG tube Admission Indicated Admission indicated?: not indicated Admission Request Was there a request for admission?: No Disposition Plan Disposition Plan: Discharge Discharge Attestation Discharge Attestation: The patient and all family members were given an opportunity to ask questions and understood the discharge instructions. Discharge instructions specifically effects, indications for sooner follow up or return to the emergency department, and the expected course of current diagnosis. Patient condition: Stable Critical Care Time Critical Care Time Critical Care Time: Yes Total Critical Care Time (min.): 60 Attestation: Due to a high probability of clinically significant, life threatening deterioration, the patient required my highest level of preparedness to intervene emergently and I personally spent this critical care time directly and personally managing the patient. This critical care time included obtaining a history; examining the patient; pulse oximetry; ordering and review of studies; arranging urgent treatment with development of a management plan; evaluation of patient's response to treatment; frequent reassessment; and, discussions with other providers. This critical care time was performed to assess and manage the high probability of imminent, life-threatening deterioration that could result in multi-organ failure. It was exclusive of separately billable procedures and treating other patients and teaching time. Discharge Plan Plan Patient Disposition: HOME (Self Care) Prescriptions/Referrals Prescriptions/Med Rec: New bisacodyl [Dulcolax (bisacodyl)] 10 mg suppository 10 mg MS QDAY PRN (Reason: constipation) Qty: 7 0RF No Action lorazepam 2 mg tablet 2 mg feeding tube HS loratadine 10 mg tablet 10 mg feeding tube QDAY naproxen 500 mg tablet 500 mg feeding tube BID Rx Instructions: with food chlorthalidone 25 mg tablet 25 mg feeding tube QAM tamsulosin 0.4 mg Capsule 0.4 mg PO QDAY Rx Instructions: via gtube polyethylene glycol 3350 [ClearLax] 17 gram/dose powder 17 g feeding tube DAILY Rx Instructions: with 8 ounces of water or juice calcium carbonate-vitamin D3 600 mg calcium- 200 unit Tablet,Chewable 1 tab PO BID Rx Instructions: via gtube quetiapine 100 mg tablet 100 mg feeding tube 1400 Rx Instructions: in the afternoon levetiracetam 500 mg tablet 500 mg PO BID Rx Instructions: via gtube quetiapine 300 mg tablet 300 mg feeding tube HS melatonin 10 mg Tablet 10 mg feeding tube HS multivitamin [One Daily Multivitamin] Tablet 1 tab feeding tube DAILY Referrals: Ko Olea MD [Primary Care Provider, Family Practice] - In 1 week Problem List Clinical Impression: Constipation, Feeding tube blocked Patient/Caregiver Discharge Instructions Diet Instructions: [email or web address] Education Materials: ED Constipation (Adult) Additional Instructions: Please follow-up with your primary care doctor within 1 to 2 days, return immediately for worsening symptoms or any new symptoms of concern. Please discuss the constipation with your primary care doctor and adjustments to your bowel regimen. Print Language: [place]ian Stand Alone Forms: Milana Award Info., Patient Portal Info Letter
--- NOTE | 2025-09-20 11:46 | XR_ITS ---
Examination: CT abdomen with intravenous contrast CT pelvis with intravenous contrast 2-D coronal reconstructions 2-D sagittal reconstructions Date and time of exam: September 20, 2025, 1608 hours, comparison July 04, 2019 INDICATIONS: Abdominal distention today. CTDI: vol (mGy) 7.03 DLP: (mGycm) 417 Technique: Multiple axial sections of the abdomen and pelvis have been obtained. 64 slice high-resolution scanner used. 3 mm axial sections have been obtained, post intravenous injection 60 cc Isovue 370 2-D sagittal, coronal reconstructions obtained. Low dose protocols were performed. One or more of the following dose reduction techniques were used; automated exposure control, adjustment of the mA and/or KV according to patient size, use of iterative reconstruction technique. Findings: Old right anterior rib deformity Minimal right pleural disease No visualized liver splenic lesion. Absent gallbladder Gastrostomy tube in satisfactory position Moderate colonic ileus Hyperdense mass body of the pancreas, 7 mm Common bile duct 14 mm No pancreatic mass 8 mm left renal calculus 2 mm and 3 mm calculi in the right renal pelvis, mild wall thickening right renal pelvis, 2 mm calculus lower pole right kidney No hydronephrosis Aorta normal size No pericecal inflammatory change Urinary bladder intact, moderately distended Mild prostatomegaly prostate calcifications Moderate lumbar spondylosis IMPRESSION: 7 mm hypodense mass body the pancreas, recommend elective MRI abdomen pancreas follow-up pre and postcontrast Bilateral renal calculi, including 2 mm 3 mm calculi in the right renal pelvis Suspicious for right urinary tract infection Moderate stool and air throughout the colon Moderately distended urinary bladder
[2025-09-20 15:40] VITALS: BP 149/87; PULSE 107; RESP 18; TEMP 36.7; O2SAT 99
--- NOTE | 2025-09-20 16:07 | PC.NURSE ---
Patient arrived to room 1, came in for gtube clogged and abdomen slightly distended. Pt is deaf, blind, and DD, daycare assistant at bedside was able to proveided details of ER visit. 20 G IV inserted to right AC, pt taken to CT.
[2025-09-20 18:45] VITALS: BP 132/73; PULSE 86; RESP 17; TEMP 36.7; O2SAT 96
[2025-09-20 21:10] VITALS: PULSE 95; RESP 18; TEMP 36.9; O2SAT 100
--- NOTE | 2025-09-20 21:11 | XR_ITS ---
Examination: Abdomen AP single view Technique: AP portable supine abdomen, single view Exam date and time: September 20, 2025 0940 hours INDICATIONS: PEG tube replacement FINDINGS: Contrast in the stomach No abnormal extravasation of contrast IMPRESSION: Gastrostomy tube satisfactory position
[2025-09-20] MEDS: MAGNESIUM CITRATE 300 ML BTL 150 ML PO (22:10)
[2025-09-20 23:00] VITALS: BP 130/74; PULSE 90; RESP 17; TEMP 36.9; O2SAT 96
== END 2025-09-21 01:15 | disposition home or self-care (01) ==
PROVIDERS: Nurse Practitioner Family; Emergency Provider Emergency Medicine; PCP Family Medicine
DX: K94.23 Gastrostomy malfunction (principal); K59.00 Constipation, unspecified; Z46.59 Encounter for fitting and adjustment of other gastrointestinal appliance and device; Z79.1 Long term (current) use of non-steroidal anti-inflammatories (NSAID); H91.3 Deaf nonspeaking, not elsewhere classified
CPT/HCPCS: 49450; 36415; 74018; 74177; 80053; 81001; 83690; 85025; 99282; A4649; Q9963; Q9967; A9270

== ENCOUNTER → 2025-11-15 | Outpatient (CLI) | payer MEDICARE, MEDICAID, SELFPAY ==
--- NOTE | 2025-11-15 15:29 | XR_ITS ---
EXAMINATION: AP lateral chest 2 views TECHNIQUE: Portable AP lateral chest 2 views Date and time: November 15, 2025, 1553 hours, comparison 08/19/2025 INDICATION: Coughing congestion 1 month. FINDINGS: Limited study, the patient is kyphotic with the head over the upper chest Mild enlargement left ventricle Moderate vascular congestion Significant pneumonia left base IMPRESSION: Significant pneumonia left base
== END | disposition home or self-care (01) ==
PROVIDERS: PCP Family Medicine; Referring Provider Family Medicine; Visit Provider Family Medicine
DX: J18.9 Pneumonia, unspecified organism (principal)
CPT/HCPCS: 71046